=== PATIENT | male | born 1965 | race Hispanic/Latino ===

== ENCOUNTER 2018-10-04 06:01 | Emergency (ER) | payer SELFPAY ==
[2018-10-04 06:08] VITALS: BP 180/107
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
== END 2018-10-04 09:54 | disposition home or self-care (01) ==
LOC: ED 06:01
DX: S05.01XA Injury of conjunctiva and corneal abrasion without foreign body, right eye, initial encounter (principal); J45.909 Unspecified asthma, uncomplicated; F17.200 Nicotine dependence, unspecified, uncomplicated; Z88.0 Allergy status to penicillin; X58.XXXA Exposure to other specified factors, initial encounter; Y93.89 Activity, other specified; Y92.89 Other specified places as the place of occurrence of the external cause; Y99.8 Other external cause status
CPT/HCPCS: 99281

== ENCOUNTER 2019-11-25 09:08 | Emergency (ER) | payer SELFPAY ==
[2019-11-25 09:13] VITALS: BP 113/98
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
[2019-11-25] MEDS ORDERED: IBUPROFEN 600 MG TAB PO ONE (11:23)
[2019-11-25] MEDS ORDERED: traMADol 50 MG TAB PO ONE (11:23)
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
--- NOTE | 2019-11-25 12:03 | XRay Report ---
RIGHT FOOT RADIOGRAPH, 2 VIEWS INDICATION / CLINICAL INFORMATION: Right foot and ankle pain questionable fracture COMPARISON: Right ankle radiograph same day FINDINGS: BONES / JOINT(S): There is cortical irregularity of the bases of the second through fourth metatarsal s seen only on the frontal view, worrisome for fractures. Distal fibular fracture better seen on dedi cated ankle radiographs. SOFT TISSUES: Diffuse soft tissue swelling about the foot and ankle. ADDITIONAL FINDINGS: None. Signer Name: Sandrine Wood MD Signed: 11/25/2019 11:58 AM Workstation Name: [id number]
== END 2019-11-25 14:48 | disposition home or self-care (01) ==
LOC: ED 09:08
DX: S82.891A Other fracture of right lower leg, initial encounter for closed fracture (principal); J45.909 Unspecified asthma, uncomplicated; F17.200 Nicotine dependence, unspecified, uncomplicated; Z79.899 Other long term (current) drug therapy; Z88.0 Allergy status to penicillin; X58.XXXA Exposure to other specified factors, initial encounter; Y93.89 Activity, other specified; Y92.89 Other specified places as the place of occurrence of the external cause; Y99.8 Other external cause status

== ENCOUNTER 2020-02-28 13:30 | Inpatient (IN) | payer OTHER ==
--- NOTE | 2020-02-28 14:21 | Event Note ---
ED Screening Note Date of service: 02/28/20 Time: 14:20 ED Screening Note: 54-year-old male presents to the emergency room for shortness of breath and bilateral leg edema x4 weeks. Patient reports he is coughing up white phlegm. Denies any chest pain but does have chest pressure. Patient denies any past medical history currently takes no medications. Does admit to smoking cigarettes drinking alcohol on occasional basis. Denies any COVID positive contact. Has not recently traveled. This initial assessment/diagnostic orders/clinical plan/treatment(s) is/are subject to change based on patients health status, clinical progression and re- assessment by fellow clinical providers in the ED. Further treatment and workup at subsequent clinical providers discretion. Patient/guardian urged not to elope from the ED as their condition may be serious if not clinically assessed and managed. Initial orders include:
--- NOTE | 2020-02-28 14:52 | XRay Report ---
CHEST 2 VIEWS INDICATION: sob,cough and rales. COMPARISON: None FINDINGS: Support devices: None. Heart: Within normal limits. Lungs/pleura: Small to medium left pleural effusion obscures the left hemidiaphragm and left heart linda rder. There is compression of the left lung base although underlying infiltrate cannot be excluded. T he right lung is generally clear. No pneumothorax. Additional findings: None. IMPRESSION: Left pleural effusion. Compressive atelectasis or infiltrate at the left lung base. Correlate with th e patient's clinical presentation. Signer Name: Yoni Soler Jr, MD Signed: 02/28/2020 2:48 PM Workstation Name: [id number]
[2020-02-28 15:06] LABS: Basophils # (Auto) 0.1 K/mm3 (0.0-0.1); Basophils % (Auto) 0.9 % (0.0-1.8); Eosinophils # (Auto) 0.2 K/mm3 (0.0-0.4); Eosinophils % (Auto) 2.5 % (0.0-4.3); Hematocrit 42.7 % (35.5-45.6); Hemoglobin 14.3 gm/dl (11.8-15.2); Lymphocytes # (Auto) 1.5 K/mm3 (1.2-5.4); Lymphocytes % (Auto) 16.4 % (13.4-35.0); Mean Corpuscular HGB Conc 34 % (32-34); Mean Corpuscular Volume 102 fl (84-94); Monocytes # (Auto) 1.2 K/mm3 (0.0-0.8); Platelet Count 252 K/mm3 (140-440); Red Blood Count 4.17 M/mm3 (3.65-5.03); Red Cell Distribution Width 14.4 % (13.2-15.2)
[2020-02-28 15:22] LABS: Alanine Aminotransferase 69 units/L (7-56); BUN/Creatinine Ratio 18; Blood Urea Nitrogen 21 mg/dL (9-20); Calcium 9.1 mg/dL (8.4-10.2); Hemolysis Index 5
[2020-02-28] MEDS ORDERED: FUROSEMIDE 40 MG/4 ML INJ IV ONE (18:49)
[2020-02-28] MEDS ORDERED: ASPIRIN 325 MG TAB PO ONE (18:54)
--- NOTE | 2020-02-28 18:54 | Emergency Department Report ---
HPI - General Chief Complaint: Dyspnea/Respdistress Time Seen by Provider: 02/28/20 14:18 - HPI HPI: Room 23 The patient is a 54-year-old male present with a chief complaint of shortness of breath. The patient states for the past 1.5 weeks she has had shortness of breath and worsening dyspnea on exertion with 10-12 stairs. Patient states that shortness of breath is worse in the morning. The patient states he has noticed bilateral lower extremity edema over the past 2 to 3 days. Patient denies chest pain or fever. ED Past Medical Hx - Past Medical History Previous Medical History?: Yes Hx Asthma: Yes (as child) - Surgical History Past Surgical History?: No - Family History Family history: no significant - Social History Smoking Status: Current Every Day Smoker (1 pack/day) Substance Use Type: None (Denies illicit drug use), Alcohol (Daily) - Medications Home Medications: Home Medications Medication Instructions Recorded Confirmed Last Taken Type Gentamicin 0.3% Ophth Soln 2 drops OP Q4H #1 bottle 10/04/18 Unknown Rx Naphazoline HCl/Pheniramine 2 drops OP BID #1 bottle 10/04/18 Unknown Rx [Naphcon-A Eye Drops] HYDROcodone/APAP 7.5-325 [[place] 1 each PO Q8HR PRN #12 tablet 11/25/19 Unknown Rx 7.5/325] Ibuprofen [Motrin 600 MG tab] 600 mg PO Q8H PRN #30 tablet 11/25/19 Unknown Rx ED Review of Systems ROS: Stated complaint: SOB/SWOLLEN LEGS Other details as noted in HPI Constitutional: denies: fever Eyes: denies: eye pain ENT: denies: throat pain Respiratory: shortness of breath, SOB with exertion Cardiovascular: dyspnea on exertion. denies: chest pain Endocrine: no symptoms reported Genitourinary: denies: dysuria Musculoskeletal: denies: back pain Neurological: denies: headache Physical Exam - Physical Exam Vital Signs: Vital Signs 02/28/20 02/28/20 02/28/20 13:47 18:03 18:30 Temperature 98.3 F 98.4 F 98.6 F Pulse Rate 120 H 113 H 110 H Respiratory 18 16 24 Rate Blood Pressure 168/100 150/111 153/111 O2 Sat by Pulse 95 96 96 Oximetry 02/28/20 18:34 Temperature Pulse Rate Respiratory 22 Rate Blood Pressure O2 Sat by Pulse 96 Oximetry Physical Exam: GENERAL: The patient is well-developed well-nourished male lying on stretcher not appearing to be in acute distress. [] HEENT: Normocephalic. Atraumatic. Extraocular motions are intact. Patient has moist mucous membranes. NECK: Supple. Trachea midline CHEST/LUNGS: Crackles and diminished breath sounds at the bases bilaterally left greater than right. There is no respiratory distress noted. HEART/CARDIOVASCULAR: Regular. There is no tachycardia. There is no gallop rub or murmur. ABDOMEN: Abdomen is soft, nontender. Patient has normal bowel sounds. There is no abdominal distention. SKIN: There is no rash. There is 1+ right and 2+ left lower extremity pitting edema. There is no diaphoresis. NEURO: The patient is awake, alert, and oriented. The patient is cooperative. The patient has normal speech MUSCULOSKELETAL: There is no evidence of acute injury. ED Course Vital Signs 02/28/20 02/28/20 02/28/20 13:47 18:03 18:30 Temperature 98.3 F 98.4 F 98.6 F Pulse Rate 120 H 113 H 110 H Respiratory 18 16 24 Rate Blood Pressure 168/100 150/111 153/111 O2 Sat by Pulse 95 96 96 Oximetry 02/28/20 18:34 Temperature Pulse Rate Respiratory 22 Rate Blood Pressure O2 Sat by Pulse 96 Oximetry ED Medical Decision Making - Lab Data Result diagrams: 02/28/20 14:37 02/28/20 14:37 Laboratory Tests 02/28/20 02/28/20 14:37 14:37 WBC 9.1 RBC 4.17 Hgb 14.3 Hct 42.7 MCV 102 H MCH 34 H MCHC 34 RDW 14.4 Plt Count 252 Lymph % (Auto) 16.4 [place] % (Auto) 13.0 H Eos % (Auto) 2.5 Baso % (Auto) 0.9 Lymph # 1.5 [place] # 1.2 H Eos # 0.2 Baso # 0.1 Seg Neutrophils % 67.2 Seg Neutrophils # 6.1 Sodium 141 Potassium 3.8 Chloride 103.8 Carbon Dioxide 25 Anion Gap 16 BUN 21 H Creatinine 1.2 Estimated GFR > 60 BUN/Creatinine Ratio 18 Glucose 101 H Calcium 9.1 Total Bilirubin 0.70 AST 36 ALT 69 H Alkaline Phosphatase 117 NT-Pro-B Natriuret Pep 5070 H Total Protein 7.1 Albumin 4.0 Albumin/Globulin Ratio 1.3 - EKG Data -: EKG Interpreted by Me EKG shows normal: sinus rhythm Rate: tachycardia (116 bpm) - EKG Data When compared to previous EKG there are: previous EKG unavailable Interpretation: other (No ischemic changes seen) - Radiology Data Radiology results: report reviewed (Chest x-ray), image reviewed (Chest x-ray) interpreted by me: Chest x-ray-left pleural effusion. No pneumothorax [facility] [address] [place] [address] XRay Report Signed Patient: JEANNETTE SYED MR#: [id number] : 1965 Acct:[id number] Age/Sex: 54 / M ADM Date: 02/28/20 Loc: ED Attending Dr: Ordering Physician: SOFÍA SOLIZ Date of Service: 02/28/20 Procedure(s): XR chest routine 2V Accession Number(s): [id number] cc: SOFÍA SOLIZ Fluoro Time In Minutes: CHEST 2 VIEWS INDICATION: sob,cough and rales. COMPARISON: None FINDINGS: Support devices: None. Heart: Within normal limits. Lungs/pleura: Small to medium left pleural effusion obscures the left hemidiaphragm and left heart border. There is compression of the left lung base although underlying infiltrate cannot be excluded. The right lung is generally clear. No pneumothorax. Additional findings: None. IMPRESSION: Left pleural effusion. Compressive atelectasis or infiltrate at the left lung base. Correlate with the patient's clinical presentation. Signer Name: Yoni Soler Jr, MD Signed: 02/28/2020 2:48 PM Workstation Name: [id number] Transcribed By: TTR Dictated By: YONI SOLER JR, MD Electronically Authenticated By: YONI SOLER JR, MD Signed Date/Time: 02/28/201447 DD/ 45 TD/TT: - Differential Diagnosis CHF, pneumonia, pleural effusion Critical care attestation.: If time is entered above; I have spent that time in minutes in the direct care of this critically ill patient, excluding procedure time. ED Disposition Clinical Impression: New onset of congestive heart failure Disposition: DC-09 OP ADMIT IP TO THIS HOSP Is pt being admited?: Yes Does the pt Need Aspirin: Yes Condition: Fair Referrals: CALISTA ROSALES MD [Primary Care Provider] - 3-5 Days Time of Disposition: 18:53 (Hospitalist paged (Dr. Garvin))
[2020-02-28] MEDS ORDERED: ACETAMINOPHEN 325 MG TAB PO PRN (21:27)
[2020-02-28] MEDS ORDERED: ONDANSETRON 4 MG/2 ML INJ IV PRN (21:27)
[2020-02-28] MEDS ORDERED: HYDROmorphone 1 MG/1 ML INJ IV PRN (21:27)
--- NOTE | 2020-02-28 21:27 | History and Physical Report ---
History of Present Illness Date of examination: 02/28/20 Date of admission: February 28, 2020 Chief complaint: Shortness of breath on minimal exertion for 1 week History of present illness: 54-year-old male With no significant past medical history is a smoker comes in for shortness of breath for last 1 week to 10 days. Shortness of breath on minimal exertion and orthopnea present. Also swelling of both the legs present. And slight redness of both the legs present. Does not take any medications for any chronic problems. No chest pain or palpitations. Orthopnea is prominent. No PND attacks. No cough or fever or exposure to coronavirus. No recent travel. - Past Medical History Previous Medical History?: Yes Hx Asthma: Yes (as child) - Surgical History Past Surgical History?: No - Family History Family history: no significant - Social History Smoking Status: Current Every Day Smoker (1 pack/day) Substance Use Type: None (Denies illicit drug use), Alcohol (Daily) - Medications Home Medications: Home Medications Medication Instructions Recorded Confirmed Last Taken Type Gentamicin 0.3% Ophth Soln 2 drops OP Q4H #1 bottle 10/04/18 Unknown Rx Naphazoline HCl/Pheniramine 2 drops OP BID #1 bottle 10/04/18 Unknown Rx [Naphcon-A Eye Drops] HYDROcodone/APAP 7.5-325 [[place] 1 each PO Q8HR PRN #12 tablet 11/25/19 Unknown Rx 7.5/325] Ibuprofen [Motrin 600 MG tab] 600 mg PO Q8H PRN #30 tablet 11/25/19 Unknown Rx Review of Systems ROS: Stated complaint: SOB/SWOLLEN LEGS Other details as noted in HPI Constitutional: denies: fever Eyes: denies: eye pain ENT: denies: throat pain Respiratory: shortness of breath, SOB with exertion Cardiovascular: dyspnea on exertion. denies: chest pain Endocrine: no symptoms reported Genitourinary: denies: dysuria Musculoskeletal: denies: back pain Neurological: denies: headache Medications and Allergies Allergies Allergy/AdvReac Type Severity Reaction Status Date / Time Penicillins Allergy Unknown Verified 10/04/18 06:08 Home Medications Medication Instructions Recorded Confirmed Last Taken Type Naphazoline HCl/Pheniramine 2 drops OP BID #1 bottle 10/04/18 Unknown Rx [Naphcon-A Eye Drops] RX: Gentamicin 0.3% Ophth Soln 2 drops OP Q4H #1 bottle 10/04/18 Unknown Rx HYDROcodone/APAP 7.5-325 [[place] 1 each PO Q8HR PRN #12 tablet 11/25/19 Unknown Rx 7.5/325] RX: Ibuprofen [Motrin 600 MG tab] 600 mg PO Q8H PRN #30 tablet 11/25/19 Unknown Rx Exam - Constitutional Vitals: Temp Pulse Resp BP Pulse Ox 98.6 F 110 H 22 153/111 96 02/28/20 18:30 02/28/20 18:30 02/28/20 18:34 02/28/20 18:30 02/28/20 18:34 General appearance: Present: no acute distress, well-nourished - EENT Eyes: Present: PERRL ENT: hearing intact, clear oral mucosa - Neck Neck: Present: supple, normal ROM - Respiratory Respiratory effort: normal Respiratory: bilateral: CTA - Cardiovascular Heart rate: 116 Rhythm: regular (116) Heart Sounds: Present: S1 & S2. Absent: rub, click - Extremities Extremities: no ischemia, pulses symmetrical, No edema Extremity abnormal: edema (2+ pitting edema present on the both the lower legs with slight erythema), erythema Peripheral Pulses: within normal limits - Abdominal General gastrointestinal: Present: soft, non-tender, non-distended, normal bowel sounds Male genitourinary: Present: normal - Integumentary Integumentary: Present: clear, warm, dry - Musculoskeletal Musculoskeletal: gait normal, strength equal bilaterally - Psychiatric Psychiatric: appropriate mood/affect, intact judgment & insight - Neurologic Neurologic: CNII-XII intact, moves all extremities - Allied Health Allied health notes reviewed: nursing, case management HEART Score - HEART Score History: Moderately suspicious Age: 45-65 Risk factors: 1-2 risk factors (Smoking) Troponin: < normal limit Results - Labs CBC & Chem 7: 02/29/20 04:23 02/29/20 04:23 Labs: Laboratory Last Values WBC 9.1 K/mm3 (4.5-11.0) 02/28/20 14:37 RBC 4.17 M/mm3 (3.65-5.03) 02/28/20 14:37 Hgb 14.3 gm/dl (11.8-15.2) 02/28/20 14:37 Hct 42.7 % (35.5-45.6) 02/28/20 14:37 MCV 102 fl (84-94) H 02/28/20 14:37 MCH 34 pg (28-32) H 02/28/20 14:37 MCHC 34 % (32-34) 02/28/20 14:37 RDW 14.4 % (13.2-15.2) 02/28/20 14:37 Plt Count 252 K/mm3 (140-440) 02/28/20 14:37 Lymph % (Auto) 16.4 % (13.4-35.0) 02/28/20 14:37 [place] % (Auto) 13.0 % (0.0-7.3) H 02/28/20 14:37 Eos % (Auto) 2.5 % (0.0-4.3) 02/28/20 14:37 Baso % (Auto) 0.9 % (0.0-1.8) 02/28/20 14:37 Lymph # 1.5 K/mm3 (1.2-5.4) 02/28/20 14:37 [place] # 1.2 K/mm3 (0.0-0.8) H 02/28/20 14:37 Eos # 0.2 K/mm3 (0.0-0.4) 02/28/20 14:37 Baso # 0.1 K/mm3 (0.0-0.1) 02/28/20 14:37 Seg Neutrophils % 67.2 % (40.0-70.0) 02/28/20 14:37 Seg Neutrophils # 6.1 K/mm3 (1.8-7.7) 02/28/20 14:37 Sodium 141 mmol/L (137-145) 02/28/20 14:37 Potassium 3.8 mmol/L (3.6-5.0) 02/28/20 14:37 Chloride 103.8 mmol/L (98-107) 02/28/20 14:37 Carbon Dioxide 25 mmol/L (22-30) 02/28/20 14:37 Anion Gap 16 mmol/L 02/28/20 14:37 BUN 21 mg/dL (9-20) H 02/28/20 14:37 Creatinine 1.2 mg/dL (0.8-1.5) 02/28/20 14:37 Estimated GFR > 60 ml/min 02/28/20 14:37 BUN/Creatinine Ratio 18 % 02/28/20 14:37 Glucose 101 mg/dL (75-100) H 02/28/20 14:37 Calcium 9.1 mg/dL (8.4-10.2) 02/28/20 14:37 Total Bilirubin 0.70 mg/dL (0.1-1.2) 02/28/20 14:37 AST 36 units/L (5-40) 02/28/20 14:37 ALT 69 units/L (7-56) H 02/28/20 14:37 Alkaline Phosphatase 117 units/L (35-129) 02/28/20 14:37 NT-Pro-B Natriuret Pep 5070 pg/mL (0-900) H 02/28/20 14:37 Total Protein 7.1 g/dL (6.3-8.2) 02/28/20 14:37 Albumin 4.0 g/dL (3.9-5) 02/28/20 14:37 Albumin/Globulin Ratio 1.3 % 02/28/20 14:37 Short CBC 02/28/20 02/29/20 Range/Units 14:37 04:23 WBC 9.1 7.8 (4.5-11.0) K/mm3 Hgb 14.3 13.6 (11.8-15.2) gm/dl Hct 42.7 40.1 (35.5-45.6) % Plt Count 252 247 (140-440) K/mm3 BMP 02/28/20 02/29/20 14:37 04:23 Sodium 141 141 Potassium 3.8 3.4 L Chloride 103.8 100.6 Carbon Dioxide 25 26 BUN 21 H 20 Creatinine 1.2 1.0 Glucose 101 H 104 H Calcium 9.1 8.3 L Cardiac Enzymes 02/28/20 02/28/20 02/29/20 Range/Units 14:37 21:41 04:23 Troponin T 0.099 H 0.113 H* 0.100 H (0.00-0.029) ng/mL Liver Function 02/28/20 02/29/20 Range/Units 14:37 04:23 Total Bilirubin 0.70 0.90 (0.1-1.2) mg/dL AST 36 32 (5-40) units/L ALT 69 H 57 H (7-56) units/L Alkaline Phosphatase 117 99 (35-129) units/L Albumin 4.0 3.3 L (3.9-5) g/dL - Imaging and Cardiology EKG: report reviewed (Sinus tachycardia heart rate of 116/min) Chest x-ray: report reviewed Imaging and Cardiology: Chest x-ray Left pleural effusion Compressive atelectasis or infiltration at the left lung base. Correlate with the patient's presentation. Chest x-ray [place]/IV: IV Catheter Type [Left Forearm INT / Saline Lock ] Assessment and Plan Advance Directives: Yes (Full code) VTE prophylaxis?: Chemical Plan of care discussed with patient/family: Yes - Patient Problems (1) Acute exacerbation of CHF (congestive heart failure) Current Visit: Yes Status: Acute Plan to address problem: New onset CHF Patient is a smoker Echocardiogram for ejection fraction and valve function IV Lasix every 12 hours Daily weights Daily intake and output Cardiology consulted (2) New onset of congestive heart failure Current Visit: Yes Status: Acute Plan to address problem: Echocardiogram for ejection fraction (3) Hypertension Current Visit: Yes Status: Chronic Qualifiers: Hypertension type: essential hypertension Qualified Code(s): I10 - Essential (primary) hypertension Plan to address problem: Patient is noncompliant we will trend the blood pressure and start on antihypertensives (4) Pedal edema Current Visit: Yes Status: Acute Plan to address problem: Probably secondary to pulmonary hypertension (5) DVT prophylaxis Current Visit: Yes Status: Acute Plan to address problem: Heparin and GI prophylaxis
[2020-02-28] MEDS ORDERED: HYDROcodone/ACETAMINOPHEN 7.5-325MG TAB PO PRN (21:37)
[2020-02-28] MEDS ORDERED: POTASSIUM CHLORIDE ER 20 MEQ TAB PO SCH (22:00)
[2020-02-28] MEDS: LOSARTAN 50 MG TAB PO SCH (22:08)
[2020-02-28] MEDS: FAMOTIDINE 20 MG TAB PO SCH (22:08)
[2020-02-28] MEDS: HEPARIN 5,000 UNIT/1 ML VIAL SUB-Q SCH (22:09)
[2020-02-28] MEDS: NICOTINE 14 MG/24 HR PATCH TD SCH (22:29)
[2020-02-28 22:35] LABS: Chol/HDL Ratio 4.09 %
[2020-02-29 06:12] LABS: Basophils # (Auto) 0.1 K/mm3 (0.0-0.1); Basophils % (Auto) 1.9 % (0.0-1.8); Eosinophils # (Auto) 0.4 K/mm3 (0.0-0.4); Eosinophils % (Auto) 4.8 % (0.0-4.3); Hematocrit 40.1 % (35.5-45.6); Hemoglobin 13.6 gm/dl (11.8-15.2); Lymphocytes # (Auto) 1.7 K/mm3 (1.2-5.4); Lymphocytes % (Auto) 21.5 % (13.4-35.0); Mean Corpuscular HGB Conc 34 % (32-34); Mean Corpuscular Volume 103 fl (84-94); Monocytes % (Auto) 12.6 % (0.0-7.3); Platelet Count 247 K/mm3 (140-440); Red Blood Count 3.88 M/mm3 (3.65-5.03); Red Cell Distribution Width 14.7 % (13.2-15.2)
[2020-02-29 06:36] LABS: Alanine Aminotransferase 57 units/L (7-56); Albumin 3.3 g/dL (3.9-5); BUN/Creatinine Ratio 20; Blood Urea Nitrogen 20 mg/dL (9-20); Calcium 8.3 mg/dL (8.4-10.2); Hemolysis Index 6
[2020-02-29] MEDS: FUROSEMIDE 40 MG/4 ML INJ IV SCH ×2 (07:48→17:29)
[2020-02-29] MEDS ORDERED: REGADENOSON 0.4 MG/5 ML INJ IV ONE ×2 (08:22→09:00)
--- NOTE | 2020-02-29 10:38 | Consultation ---
History of Present Illness Consult date: 02/29/20 Consult reason: congestive heart failure History of present illness: The patient is a 54-year-old man who reports no prior medical history, and has not seen a doctor in many years. He presents to the hospital with a two-week history of progressive shortness of breath, fatigue and bilateral lower extremity edema. There was no chest pain. Blood pressure was 168 systolic. EKG on presentation was a sinus tachycardia at 116, left ventricular pressure [address] and T wave abnormalities. Chest x-ray demonstrated a m oderate to severe cardiomegaly and mild interstitial edema, consistent with congestive heart failure. This is a new diagnosis of heart failure, patient reports no previous history. Echocardiogram preliminary findings of a severe systolic left ventricular dysfunction. Full echocardiogram report is pending. Past History Past Medical History: No medical history Medications and Allergies Allergies Allergy/AdvReac Type Severity Reaction Status Date / Time Penicillins Allergy Unknown Verified 10/04/18 06:08 Home Medications Medication Instructions Recorded Confirmed Last Taken Type Gentamicin 0.3% Ophth Soln 2 drops OP Q4H #1 bottle 10/04/18 Unknown Rx Naphazoline HCl/Pheniramine 2 drops OP BID #1 bottle 10/04/18 Unknown Rx [Naphcon-A Eye Drops] HYDROcodone/APAP 7.5-325 [[place] 1 each PO Q8HR PRN #12 tablet 11/25/19 Unknown Rx 7.5/325] Ibuprofen [Motrin 600 MG tab] 600 mg PO Q8H PRN #30 tablet 11/25/19 Unknown Rx Active Meds: Active Medications Acetaminophen (Tylenol) 650 mg PO Q4H PRN PRN Reason: Pain MILD(1-3)/Fever >100.5/[place] Acetaminophen/Hydrocodone Bitart ([place] 7.5/325) 1 each PO Q8HR PRN PRN Reason: Pain, Moderate (4-6) Famotidine (Pepcid) 20 mg PO BID [facility] Last Admin: 02/28/20 22:08 Dose: 20 mg Documented by: Furosemide (Lasix) 40 mg IV 0600,1800 [facility] Last Admin: 02/29/20 07:48 Dose: 40 mg Documented by: Furosemide (Lasix) 40 mg IV ONCE ONE Stop: 02/29/20 21:34 Heparin Sodium (Porcine) (Heparin) 5,000 unit SUB-Q Q12HR [facility] Last Admin: 02/28/20 22:09 Dose: 5,000 unit Documented by: Hydromorphone HCl (Dilaudid) 0.5 mg IV Q3H PRN PRN Reason: Pain , Severe (7-10) Losartan Potassium (Cozaar) 100 mg PO QDAY [facility] Last Admin: 02/28/20 22:08 Dose: 100 mg Documented by: Nicotine (Habitrol) 14 mg TD QDAY@2200 [facility] Last Admin: 02/28/20 22:29 Dose: 14 mg Documented by: Ondansetron HCl (Zofran) 4 mg IV Q8H PRN PRN Reason: Nausea And Vomiting Oxycodone/Acetaminophen (Percocet 5/325) 1 tab PO Q6H PRN PRN Reason: Pain, Moderate (4-6) Potassium Chloride (K-Dur) 20 meq PO Q12H [facility] Last Admin: 02/28/20 22:09 Dose: 20 meq Documented by: Sodium Chloride (Sodium Chloride Flush Syringe 10 Ml) 10 ml IV BID [facility] Last Admin: 02/28/20 22:10 Dose: 10 ml Documented by: Sodium Chloride (Sodium Chloride Flush Syringe 10 Ml) 10 ml IV PRN PRN PRN Reason: LINE FLUSH Review of Systems Cardiovascular: orthopnea, edema, shortness of breath, no chest pain, no palpitations, no rapid/irregular heart beat, no syncope, no lightheadedness Physical Examination Vital Signs Temp Pulse Resp BP Pulse Ox 98.3 F 120 H 18 168/100 95 02/28/20 13:47 02/28/20 13:47 02/28/20 13:47 02/28/20 13:47 02/28/20 13:47 General appearance: no acute distress HEENT: Positive: PERRL Neck: Positive: neck supple Cardiac: Positive: Reg Rate and Rhythm Lungs: Positive: Decreased Breath Sounds Neuro: Positive: Grossly Intact Abdomen: Positive: Soft Male genitourinary: Positive: deferred Skin: Positive: Clear Extremities: Present: +1 Edema Results 02/29/20 04:23 02/29/20 04:23 Cardiac Enzymes 02/28/20 02/29/20 Range/Units 14:37 04:23 AST 36 32 (5-40) units/L Lipids 02/28/20 Range/Units 21:41 Triglycerides 91 (2-149) mg/dL Cholesterol 131 (50-199) mg/dL HDL Cholesterol 32 L (40-59) mg/dL Cholesterol/HDL Ratio 4.09 % CBC 02/28/20 02/29/20 Range/Units 14:37 04:23 WBC 9.1 7.8 (4.5-11.0) K/mm3 RBC 4.17 3.88 (3.65-5.03) M/mm3 Hgb 14.3 13.6 (11.8-15.2) gm/dl Hct 42.7 40.1 (35.5-45.6) % Plt Count 252 247 (140-440) K/mm3 Lymph # 1.5 1.7 (1.2-5.4) K/mm3 [place] # 1.2 H 1.0 H (0.0-0.8) K/mm3 Eos # 0.2 0.4 (0.0-0.4) K/mm3 Baso # 0.1 0.1 (0.0-0.1) K/mm3 Comprehensive Metabolic Panel 02/28/20 02/29/20 Range/Units 14:37 04:23 Sodium 141 141 (137-145) mmol/L Potassium 3.8 3.4 L (3.6-5.0) mmol/L Chloride 103.8 100.6 (98-107) mmol/L Carbon Dioxide 25 26 (22-30) mmol/L BUN 21 H 20 (9-20) mg/dL Creatinine 1.2 1.0 (0.8-1.5) mg/dL Glucose 101 H 104 H (75-100) mg/dL Calcium 9.1 8.3 L (8.4-10.2) mg/dL AST 36 32 (5-40) units/L ALT 69 H 57 H (7-56) units/L Alkaline Phosphatase 117 99 (35-129) units/L Total Protein 7.1 6.4 (6.3-8.2) g/dL Albumin 4.0 3.3 L (3.9-5) g/dL EKG interpretations - Telemetry EKG Rhythm: Sinus Tachycardia Assessment and Plan - Patient Problems (1) New onset of congestive heart failure Current Visit: Yes Status: Acute Plan to address problem: Patient presents with a new diagnosis of congestive heart failure manifested by shortness of breath, fatigue, interstitial edema on chest x-ray and bilateral lower extremity edema. There is marked cardiomegaly on chest x-ray and prelimin beba findings on echocardiogram report severe systolic left ventricular dysfunction. The patient will be managed with diuretics, afterload reduction, oral antiplatelet therapy, and beta-blockers will be introduced after resolution of fluid overload. Further cardiac evaluation will depend on clinical course.
[2020-02-29] MEDS ORDERED: POTASSIUM CHLORIDE ER 20 MEQ TAB PO SCH (11:00)
[2020-02-29] MEDS: FAMOTIDINE 20 MG TAB PO SCH ×2 (11:21→21:18)
[2020-02-29] MEDS: HEPARIN 5,000 UNIT/1 ML VIAL SUB-Q SCH ×2 (11:21→21:20)
[2020-02-29] MEDS: LOSARTAN 50 MG TAB PO SCH (11:21)
[2020-02-29] MEDS: ASPIRIN EC 81 MG TAB PO SCH (11:24)
[2020-02-29] MEDS: carvediloL 6.25 MG TAB PO SCH ×2 (11:24→21:19)
[2020-02-29] MEDS: SPIRONOLACTONE 25 MG TAB PO SCH (11:25)
[2020-02-29] MEDS: NITROGLYCERIN 2% OINT 1 GM TP SCH ×2 (14:00→17:30)
[2020-02-29] MEDS: NICOTINE 14 MG/24 HR PATCH TD SCH (21:19)
--- NOTE | 2020-02-29 21:20 | Progress Note ---
Assessment and Plan Day #2 Dyspnea better Ejection fraction is 15 to 20% - Patient Problems (1) Acute exacerbation of CHF (congestive heart failure) Current Visit: Yes Status: Acute Plan to address problem: New onset CHF Patient is a smoker Echocardiogram for ejection fraction and valve function IV Lasix every 12 hours Daily weights Daily intake and output Cardiology consult appreciated Ejection fraction is 15 to 20% Decreased left ventricular systolic function CHF is in more in favor of acute systolic heart failure (2) New onset of congestive heart failure Current Visit: Yes Status: Acute Plan to address problem: Echocardiogram for ejection fraction Ejection fraction 15 to 20% Severely decreased left ventricular systolic function (3) Hypertension Current Visit: Yes Status: Chronic Qualifiers: Hypertension type: essential hypertension Qualified Code(s): I10 - Essential (primary) hypertension Plan to address problem: Patient is noncompliant we will trend the blood pressure and start on antihypertensives (4) Pedal edema Current Visit: Yes Status: Acute Plan to address problem: Probably secondary to pulmonary hypertension Pedal edema has come down (5) DVT prophylaxis Current Visit: Yes Status: Acute Plan to address problem: Heparin and GI prophylaxis Subjective Date of service: 02/29/20 Objective - Constitutional Vitals: Vital Signs - 12hr 02/29/20 02/29/20 02/29/20 11:21 11:24 11:25 Temperature Pulse Rate 103 H 103 H 103 H Respiratory Rate Blood Pressure 154/101 154/101 154/101 O2 Sat by Pulse Oximetry 02/29/20 02/29/20 02/29/20 16:01 17:30 19:55 Temperature 97.7 F 98.3 F Pulse Rate 95 H 99 H 96 H Respiratory 18 20 Rate Blood Pressure 125/84 125/79 O2 Sat by Pulse 97 91 Oximetry General appearance: Present: no acute distress, well-nourished - EENT Eyes: PERRL, EOM intact ENT: hearing intact, clear oral mucosa Ears: bilateral: normal - Neck Neck: supple, normal ROM - Respiratory Respiratory effort: normal Respiratory: bilateral: CTA - Breasts Breasts: normal - Cardiovascular Rhythm: regular Heart Sounds: Present: S1 & S2. Absent: gallop, rub Extremities: pulses intact, No edema, normal color, Full ROM - Gastrointestinal General gastrointestinal: Present: soft, non-tender, non-distended, normal bowel sounds - Genitourinary Male genitourinary: normal - Integumentary Integumentary: clear, warm, dry - Musculoskeletal Musculoskeletal: 1, strength equal bilaterally - Neurologic Neurologic: moves all extremities - Psychiatric Psychiatric: memory intact, appropriate mood/affect, intact judgment & insight - Labs CBC & Chem 7: 02/29/20 04:23 02/29/20 04:23 Labs: Abnormal lab results 02/28/20 02/28/20 02/29/20 Range/Units 14:37 21:41 04:23 MCV 103 H (84-94) fl MCH 35 H (28-32) pg [place] % (Auto) 12.6 H (0.0-7.3) % Eos % (Auto) 4.8 H (0.0-4.3) % Baso % (Auto) 1.9 H (0.0-1.8) % [place] # 1.0 H (0.0-0.8) K/mm3 Potassium (3.6-5.0) mmol/L Glucose (75-100) mg/dL Calcium (8.4-10.2) mg/dL ALT (7-56) units/L Troponin T 0.099 H 0.113 H* (0.00-0.029) ng/mL Albumin (3.9-5) g/dL HDL Cholesterol 32 L (40-59) mg/dL 02/29/20 02/29/20 02/29/20 Range/Units 04:23 04:23 14:53 MCV (84-94) fl MCH (28-32) pg [place] % (Auto) (0.0-7.3) % Eos % (Auto) (0.0-4.3) % Baso % (Auto) (0.0-1.8) % [place] # (0.0-0.8) K/mm3 Potassium 3.4 L (3.6-5.0) mmol/L Glucose 104 H (75-100) mg/dL Calcium 8.3 L (8.4-10.2) mg/dL ALT 57 H (7-56) units/L Troponin T 0.100 H 0.072 H D (0.00-0.029) ng/mL Albumin 3.3 L (3.9-5) g/dL HDL Cholesterol (40-59) mg/dL Echocardiogram Estimated ejection fraction is less than 15 to 20% Left ventricular chamber is severely dilated Left ventricular systolic function is severely decreased There is moderate mitral regurgitation There is mild to moderate tricuspid regurgitation There is mild to moderate pulmonary hypertension The right ventricular systolic pressure is calculated at 41 mmHg A trivial pericardial effusion is visualized - Imaging and cardiology Other: report reviewed (Echocardiogram results mentioned in the lab section) HEART Score - HEART Score Age: 45-65 Risk factors: 1-2 risk factors (Smoking) Troponin: Troponin T 0.072 ng/mL (0.00-0.029) H D 02/29/20 14:53 Troponin: < normal limit
[2020-02-29] MEDS ORDERED: FUROSEMIDE 40 MG/4 ML INJ IV ONE (21:33)
[2020-02-29] MEDS: oxyCODONE /ACETAMINOPHEN 5-325MG TAB PO PRN (22:34)
[2020-03-01] MEDS: oxyCODONE /ACETAMINOPHEN 5-325MG TAB PO PRN (06:15)
[2020-03-01] MEDS: NITROGLYCERIN 2% OINT 1 GM TP SCH ×4 (06:16→17:07)
[2020-03-01] MEDS: FUROSEMIDE 40 MG/4 ML INJ IV SCH ×2 (06:16→17:27)
[2020-03-01] MEDS: ASPIRIN EC 81 MG TAB PO SCH (09:36)
[2020-03-01] MEDS: FAMOTIDINE 20 MG TAB PO SCH ×2 (09:36→20:59)
[2020-03-01] MEDS: SPIRONOLACTONE 25 MG TAB PO SCH (09:36)
[2020-03-01] MEDS: LOSARTAN 50 MG TAB PO SCH (09:36)
[2020-03-01] MEDS: carvediloL 6.25 MG TAB PO SCH ×2 (09:37→20:59)
[2020-03-01] MEDS: HEPARIN 5,000 UNIT/1 ML VIAL SUB-Q SCH ×2 (09:38→20:59)
--- NOTE | 2020-03-01 10:33 | Progress Note ---
Assessment and Plan - Patient Problems (1) New onset of congestive heart failure Current Visit: Yes Status: Acute Plan to address problem: Patient presents with a new diagnosis of congestive heart failure manifested by shortness of breath, fatigue, interstitial edema on chest x-ray and bilateral lower extremity edema. There is marked cardiomegaly on chest x-ray and preliminary findings on echocardiogram report severe systolic left ventricular dysfunction. The patient will be managed with diuretics, afterload reduction, oral antiplatelet therapy, and beta-blockers will be introduced after resolution of fluid overload. Further cardiac evaluation will depend on clinical course. Subjective Date of service: 03/01/20 Interval history: The patient is comfortable, ambulating in the room, no shortness of breath. Lower extremity edema is resolving. Objective Vital Signs Temp Pulse Resp BP Pulse Ox 03/01/20 09:37 94 H 138/104 03/01/20 09:36 94 H 138/104 03/01/20 07:56 98.5 F 18 139/104 03/01/20 05:40 98.5 F 95 H 18 141/105 95 03/01/20 02:40 91 H 02/29/20 23:44 98.6 F 92 H 20 113/74 95 02/29/20 21:19 102 H 125/79 02/29/20 20:05 95 H 02/29/20 19:55 98.3 F 96 H 20 125/79 91 02/29/20 17:30 99 H 02/29/20 16:01 97.7 F 95 H 18 125/84 97 02/29/20 11:25 103 H 154/101 02/29/20 11:24 103 H 154/101 02/29/20 11:21 103 H 154/101 - Physical Examination General: No Apparent Distress HEENT: Positive: PERRL Neck: Positive: neck supple Cardiac: Positive: Reg Rate and Rhythm Lungs: Positive: clear to auscultation Neuro: Positive: Grossly Intact Abdomen: Positive: Soft Skin: Positive: Clear Extremities: Present: edema (trace) - Imaging and Cardiology EKG: report reviewed (Sinus tachycardia heart rate of 116/min)
--- NOTE | 2020-03-01 16:32 | Progress Note ---
Assessment and Plan Day #2 Dyspnea better Ejection fraction is 15 to 20% Day #3 Symptomatically better Probable discharge tomorrow Pedal edema has come down - Patient Problems (1) Acute exacerbation of CHF (congestive heart failure) Current Visit: Yes Status: Acute Plan to address problem: New onset CHF Patient is a smoker Echocardiogram for ejection fraction and valve function IV Lasix every 12 hours Daily weights Daily intake and output Cardiology consulted (2) New onset of congestive heart failure Current Visit: Yes Status: Acute Plan to address problem: Echocardiogram for ejection fraction (3) Hypertension Current Visit: Yes Status: Chronic Qualifiers: Hypertension type: essential hypertension Qualified Code(s): I10 - Essential (primary) hypertension Plan to address problem: Patient is noncompliant we will trend the blood pressure and start on antihypertensives (4) Pedal edema Current Visit: Yes Status: Acute Plan to address problem: Probably secondary to pulmonary hypertension (5) DVT prophylaxis Current Visit: Yes Status: Acute Plan to address problem: Heparin and GI prophylaxis Subjective Date of service: 03/01/20 Principal diagnosis: New onset CHF exacerbation Interval history: Day #3 54-year-old male With no significant past medical history is a smoker comes in for shortness of breath for last 1 week to 10 days. Shortness of breath on minimal exertion and orthopnea present. Also swelling of both the legs present. And slight redness of both the legs present. Does not take any medications for any chronic problems. No chest pain or palpitations. Orthopnea is prominent. No PND attacks. No cough or fever or exposure to coronavirus. No recent travel. Symptomatically better Ejection fraction is 15 to 20% Objective - Constitutional Vitals: Vital Signs - 12hr 03/01/20 03/01/20 03/01/20 05:40 07:56 09:36 Temperature 98.5 F 98.5 F Pulse Rate 95 H 94 H Respiratory 18 18 Rate Blood Pressure 141/105 139/104 138/104 O2 Sat by Pulse 95 Oximetry 03/01/20 03/01/20 09:37 10:00 Temperature Pulse Rate 94 H 90 Respiratory 20 Rate Blood Pressure 138/104 O2 Sat by Pulse Oximetry General appearance: Present: no acute distress, well-nourished - EENT Eyes: PERRL, EOM intact ENT: hearing intact, clear oral mucosa Ears: bilateral: normal - Neck Neck: supple, normal ROM - Respiratory Respiratory effort: normal Respiratory: bilateral: CTA - Breasts Breasts: normal - Cardiovascular Rhythm: regular Heart Sounds: Present: S1 & S2. Absent: gallop, rub Extremities: pulses intact, No edema, normal color, Full ROM - Gastrointestinal General gastrointestinal: Present: soft, non-tender, non-distended, normal bowel sounds - Genitourinary Male genitourinary: normal - Integumentary Integumentary: clear, warm, dry - Musculoskeletal Musculoskeletal: 1, strength equal bilaterally - Neurologic Neurologic: moves all extremities - Psychiatric Psychiatric: memory intact, appropriate mood/affect, intact judgment & insight - Labs CBC & Chem 7: 02/29/20 04:23 02/29/20 04:23 HEART Score - HEART Score Age: 45-65 Risk factors: 1-2 risk factors (Smoking) Troponin: Troponin T 0.072 ng/mL (0.00-0.029) H D 02/29/20 14:53 Troponin: < normal limit
[2020-03-01] MEDS ORDERED: MAGNESIUM HYDROXIDE (MOM) ORAL LIQD UDC PO PRN (20:38)
[2020-03-01] MEDS: NICOTINE 14 MG/24 HR PATCH TD SCH (20:59)
[2020-03-02] MEDS: NITROGLYCERIN 2% OINT 1 GM TP SCH ×4 (06:05→17:33)
[2020-03-02] MEDS: FUROSEMIDE 40 MG/4 ML INJ IV SCH ×2 (06:08→17:31)
[2020-03-02] MEDS: ASPIRIN EC 81 MG TAB PO SCH (11:21)
[2020-03-02] MEDS: FAMOTIDINE 20 MG TAB PO SCH ×2 (11:22→22:33)
[2020-03-02] MEDS: SPIRONOLACTONE 25 MG TAB PO SCH (11:22)
[2020-03-02] MEDS: LOSARTAN 50 MG TAB PO SCH (11:22)
[2020-03-02] MEDS: carvediloL 6.25 MG TAB PO SCH ×2 (11:23→22:33)
[2020-03-02] MEDS: HEPARIN 5,000 UNIT/1 ML VIAL SUB-Q SCH ×2 (11:23→22:33)
--- NOTE | 2020-03-02 14:11 | Progress Note ---
Assessment and Plan - Patient Problems (1) New onset of congestive heart failure Current Visit: Yes Status: Acute Plan to address problem: Patient presented with a new diagnosis of congestive heart failure manifested by shortness of breath, fatigue, interstitial edema on chest x-ray and bilateral lower extremity edema. There is marked cardiomegaly on chest x-ray and echocardiogram reports severe systolic left ventricular dysfunction ejection fraction 20 to 25%. The patient has responded diuretics, afterload reduction, oral antiplatelet therapy, beta-blockers and other guideline directed medical therapy. In the setting of new onset heart failure and severe systolic left ventricular dysfunction, accompanied by elevation in troponin levels, we will proceed with a left heart catheterization for definitive rule out of coronary artery disease. Subjective Date of service: 03/02/20 Principal diagnosis: New onset CHF exacerbation Interval history: Patient is improved clinically, shortness of breath and edema have resolved. Objective Vital Signs Temp Pulse Resp BP Pulse Ox 03/02/20 12:00 88 03/02/20 11:23 88 110/72 03/02/20 11:22 88 110/72 03/02/20 10:00 18 03/02/20 08:51 98.4 F 18 110/73 03/02/20 05:02 97.8 F 92 H 20 125/94 97 03/02/20 04:11 91 H 03/01/20 23:51 98.3 F 94 H 20 111/80 94 03/01/20 20:59 94 H 126/87 03/01/20 19:27 96 H 03/01/20 19:13 98.5 F 95 H 20 126/87 93 03/01/20 18:00 94 H 03/01/20 17:17 98.0 F 18 123/92 - Physical Examination General: No Apparent Distress HEENT: Positive: PERRL Neck: Positive: neck supple Cardiac: Positive: Reg Rate and Rhythm Lungs: Positive: Decreased Breath Sounds Neuro: Positive: Grossly Intact Abdomen: Positive: Soft Skin: Positive: Clear Extremities: Present: edema (trace) - Imaging and Cardiology EKG: report reviewed (Sinus tachycardia heart rate of 116/min)
[2020-03-02] MEDS ORDERED: SODIUM CHLORIDE 0.9% 500 ML 500 ML IV SCH (15:00)
[2020-03-02] MEDS: NICOTINE 14 MG/24 HR PATCH TD SCH (22:32)
[2020-03-03 06:15] LABS: Basophils # (Auto) 0.1 K/mm3 (0.0-0.1); Basophils % (Auto) 1.3 % (0.0-1.8); Eosinophils # (Auto) 0.3 K/mm3 (0.0-0.4); Eosinophils % (Auto) 4.5 % (0.0-4.3); Hematocrit 46.6 % (35.5-45.6); Hemoglobin 15.6 gm/dl (11.8-15.2); Lymphocytes # (Auto) 1.8 K/mm3 (1.2-5.4); Lymphocytes % (Auto) 23.5 % (13.4-35.0); Mean Corpuscular HGB Conc 34 % (32-34); Mean Corpuscular Volume 103 fl (84-94); Monocytes # (Auto) 1.1 K/mm3 (0.0-0.8); Monocytes % (Auto) 13.9 % (0.0-7.3); Platelet Count 285 K/mm3 (140-440); Red Blood Count 4.52 M/mm3 (3.65-5.03); Red Cell Distribution Width 14.7 % (13.2-15.2)
[2020-03-03 06:25] LABS: INR 1.11 (0.87-1.13)
[2020-03-03 06:31] LABS: BUN/Creatinine Ratio 17; Blood Urea Nitrogen 19 mg/dL (9-20); Calcium 9.1 mg/dL (8.4-10.2); Hemolysis Index 6
[2020-03-03] MEDS ORDERED: ASPIRIN EC 81 MG TAB PO ONE (08:05)
[2020-03-03] MEDS: ASPIRIN EC 81 MG TAB PO SCH ×2 (08:10→11:14)
[2020-03-03] MEDS ORDERED: SODIUM CHLORIDE 0.9% 500 ML 500 ML ONE (08:42)
[2020-03-03] MEDS ORDERED: HEPARIN/NS 5000 UNIT/500ML 1,000 ML IR ONE (09:12)
[2020-03-03] MEDS: MIDAZOLAM 2 MG/2 ML INJ ONE ×2 (09:41→10:12)
[2020-03-03] MEDS: fentaNYL 100 MCG/2 ML INJ ONE ×3 (09:41→10:25)
[2020-03-03] MEDS: LIDOCAINE (2%) 20 MG/1 ML VIAL 20 ML MDV INFILTRATI ONE ×2 (09:42→10:15)
[2020-03-03] MEDS: NITROGLYCERIN SYRINGE 3 ML ONE ×2 (09:43→10:20)
[2020-03-03] MEDS: VERAPAMIL 5 MG/2 ML INJ ONE ×2 (09:44→10:20)
[2020-03-03] MEDS: HEPARIN 10,000 UNITS/10 ML VIAL ONE ×2 (09:44→10:20)
--- NOTE | 2020-03-03 10:54 | Cardiac Catherization Report ---
REASON FOR PROCEDURE: Congestive heart failure and dilated cardiomyopathy. PROCEDURES: 1. Left heart catheterization. 2. Selective left and right coronary angiography. 3. Left ventricular angiography. 4. Sedation time start 10:12, end 10:31. DESCRIPTION OF PROCEDURE: The patient was prepped and draped in a sterile fashion after informed consent. The right radial cath site was prepped and draped after a negative Joni's test. The right radial artery was entered using Seldinger technique followed by placement of a 6-Danish hydrophilic sheath. Routine radial cocktail was administered via the sheath. Selective left and right coronary angiography was performed using a #3.5 left Elizabeth and a #4 right Elizabeth. A pigtail catheter was used for left ventricular angiography. The catheters were removed, sheath removed, and hemostasis achieved using a TR band. The patient was returned to the postprocedure unit in stable condition. There were no complications. FINDINGS: HEMODYNAMICS: Left ventricular end-diastolic pressure was 28, following coronary angiography. Ascending aortic pressure was 111/86. There was no significant pressure gradient on pullback across the aortic valve. CORONARY ANGIOGRAPHY: Left main coronary artery was angiographically normal. The left anterior descending artery and its diagonal branches were free of significant disease. A small to medium sized ramus intermedius artery contained mild luminal irregularities. The circumflex artery and its obtuse marginal branches contained mild luminal irregularities. The right coronary artery was dominant and similarly contained mild luminal irregularities. Left ventricle was severely dilated. There was severe left ventricular systolic dysfunction, diffuse hypokinesis, left ventricular ejection fraction 5-10%. CONCLUSION: 1. No significant coronary artery disease, angiographically near normal coronary arteries. 2. Severe dilated nonischemic cardiomyopathy, left ventricular ejection fraction 5-10%. RECOMMENDATION: Medical therapy and associated device therapy is recommended for severe nonischemic cardiomyopathy. JOB# [id number] CA/NTS
[2020-03-03] MEDS: FUROSEMIDE 40 MG/4 ML INJ IV SCH (11:13)
[2020-03-03] MEDS: NITROGLYCERIN 2% OINT 1 GM TP SCH (11:13)
--- NOTE | 2020-03-03 11:35 | Event Note ---
Date: 03/03/20 Cardiac catheterization today revealed angiographically normal coronary arteries and end-stage dilated nonischemic cardiomyopathy, ejection fraction 5 to 10%. The patient will be placed on guideline directed medical therapy and aggressive salt restricted diet. Okay for cardiac discharge on medical therapy.
[2020-03-03] MEDS: carvediloL 6.25 MG TAB PO SCH (11:43)
[2020-03-03] MEDS: SPIRONOLACTONE 25 MG TAB PO SCH (11:43)
[2020-03-03] MEDS: LOSARTAN 50 MG TAB PO SCH (11:43)
[2020-03-03] MEDS: FAMOTIDINE 20 MG TAB PO SCH (11:43)
[2020-03-03] MEDS: HEPARIN 5,000 UNIT/1 ML VIAL SUB-Q SCH (11:44)
[2020-03-03] MEDS ORDERED: SODIUM CHLORIDE 0.9% 1000 ML 1,000 ML IV SCH (11:45)
--- NOTE | 2020-03-03 20:18 | Progress Note ---
Assessment and Plan Day #2 Dyspnea better Ejection fraction is 15 to 20% Day #3 Symptomatically better Probable discharge tomorrow Pedal edema has come down Day 4 Symptomatically better Patient for left heart catheterization tomorrow Possible discharge after the cath tomorrow if cath is normal - Patient Problems (1) Acute exacerbation of CHF (congestive heart failure) Current Visit: Yes Status: Acute Plan to address problem: New onset CHF Patient is a smoker Echocardiogram for ejection fraction and valve function IV Lasix every 12 hours Daily weights Daily intake and output Cardiology consulted EChOfindings: Echocardiogram Ejection fraction is less than 15 to 20% Left ventricle systolic function is severely decreased Left ankle chamber is severely dilated Left atrium is moderate to severely dilated Moderate mitral regurgitation Moderate tricuspid regurgitation Mild to moderate pulmonary pretension (2) New onset of congestive heart failure Current Visit: Yes Status: Acute Plan to address problem: Echocardiogram for ejection fraction Ejection fraction 15 to 20% (3) Hypertension Current Visit: Yes Status: Chronic Qualifiers: Hypertension type: essential hypertension Qualified Code(s): I10 - Essential (primary) hypertension Plan to address problem: Patient is noncompliant we will trend the blood pressure and start on antihypertensives (4) Pedal edema Current Visit: Yes Status: Acute Plan to address problem: Probably secondary to pulmonary hypertension (5) DVT prophylaxis Current Visit: Yes Status: Acute Plan to address problem: Heparin and GI prophylaxis Subjective Date of service: 03/02/20 Principal diagnosis: New onset CHF exacerbation Interval history: Day #4 54-year-old male With no significant past medical history is a smoker comes in for shortness of breath for last 1 week to 10 days. Shortness of breath on minimal exertion and orthopnea present. Also swelling of both the legs present. And slight redness of both the legs present. Does not take any medications for any chronic problems. No chest pain or palpitations. Orthopnea is prominent. No PND attacks. No cough or fever or exposure to coronavirus. No recent travel. Symptomatically better Ejection fraction is 15 to 20% Patient for left heart catheterization tomorrow Objective - Constitutional Vitals: Vital Signs - 12hr 03/03/20 03/03/20 03/03/20 10:00 11:45 16:05 Temperature 98.9 F Pulse Rate 97 H 90 95 H Respiratory 20 Rate Blood Pressure 116/87 114/77 O2 Sat by Pulse 99 92 Oximetry 03/03/20 03/03/2020 16:36 16:37 16:38 Temperature Pulse Rate Respiratory Rate Blood Pressure 107/80 117/78 117/79 O2 Sat by Pulse Oximetry General appearance: Present: no acute distress, well-nourished - EENT Eyes: PERRL, EOM intact ENT: hearing intact, clear oral mucosa Ears: bilateral: normal - Neck Neck: supple, normal ROM - Respiratory Respiratory effort: normal Respiratory: bilateral: CTA - Breasts Breasts: normal - Cardiovascular Heart rate: 78 Rhythm: regular Heart Sounds: Present: S1 & S2. Absent: gallop, rub Extremities: pulses intact, No edema, normal color, Full ROM - Gastrointestinal General gastrointestinal: Present: soft, non-tender, non-distended, normal bowel sounds - Genitourinary Male genitourinary: normal - Integumentary Integumentary: clear, warm, dry - Musculoskeletal Musculoskeletal: 1, strength equal bilaterally - Neurologic Neurologic: moves all extremities - Psychiatric Psychiatric: memory intact, appropriate mood/affect, intact judgment & insight - Labs CBC & Chem 7: 03/03/20 05:08 03/03/20 05:08 Labs: Abnormal lab results 03/03/20 03/03/20 Range/Units 05:08 05:08 Hgb 15.6 H (11.8-15.2) gm/dl Hct 46.6 H (35.5-45.6) % MCV 103 H (84-94) fl MCH 35 H (28-32) pg Marin % (Auto) 13.9 H (0.0-7.3) % Eos % (Auto) 4.5 H (0.0-4.3) % Marin # 1.1 H (0.0-0.8) K/mm3 Chloride 97.7 L (98-107) mmol/L Glucose 117 H (75-100) mg/dL HEART Score - HEART Score Age: 45-65 Risk factors: 1-2 risk factors (Smoking) Troponin: Troponin T 0.072 ng/mL (0.00-0.029) H D 02/29/20 14:53 Troponin: < normal limit
--- NOTE | 2020-03-03 20:29 | Discharge Summary ---
Providers - Providers Date of Admission: 02/28/20 21:27 Date of discharge: 03/03/20 Attending physician: JAIME HIGH 02/28/20 21:27 Consult to Physician [CONS] Routine Comment: Consulting Provider: HOLLIE DESOUZA Physician Instructions: Reason For Exam: chf exacerbation 03/03/20 11:35 Consult to Cardiac Rehabilitation [CONS] Routine Reason For Exam: Cardiac Rehab Evaluation [facility] Condition: Fair Pertinent studies: EChOfindings: Echocardiogram Ejection fraction is less than 15 to 20% Left ventricle systolic function is severely decreased Left ankle chamber is severely dilated Left atrium is moderate to severely dilated Moderate mitral regurgitation Moderate tricuspid regurgitation Mild to moderate pulmonary pretension Procedures: Left heart catheterization--normal coronaries Hospital course: 54-year-old male With no significant past medical history is a smoker comes in for shortness of breath for last 1 week to 10 days. Shortness of breath on minimal exertion and orthopnea present. Also swelling of both the legs present. And slight redness of both the legs present. Does not take any medications for any chronic problems. No chest pain or palpitations. Orthopnea is prominent. No PND attacks. No cough or fever or exposure to coronavirus. No recent travel. Day #2 Dyspnea better Ejection fraction is 15 to 20% Day #3 Symptomatically better Probable discharge tomorrow Pedal edema has come down Day 4 Symptomatically better Patient for left heart catheterization tomorrow Possible discharge after the cath tomorrow if cath is normal Day #5 Symptomatically better Ejection fraction is 15 to 20% Patient for left heart catheterization tomorrow Day #6 Heart cardiac cath Normal coronary arteries Patient counseled about the congestive heart failure and his ejection fraction of 15 to 20% - Patient Problems (1) Acute exacerbation of CHF (congestive heart failure) Current Visit: Yes Status: Acute Plan to address problem: New onset CHF Patient is a smoker Echocardiogram for ejection fraction and valve function IV Lasix every 12 hours Daily weights Daily intake and output Cardiology consulted EChOfindings: Echocardiogram Ejection fraction is less than 15 to 20% Left ventricle systolic function is severely decreased Left ankle chamber is severely dilated Left atrium is moderate to severely dilated Moderate mitral regurgitation Moderate tricuspid regurgitation Mild to moderate pulmonary pretension (2) New onset of congestive heart failure Current Visit: Yes Status: Acute Plan to address problem: Echocardiogram for ejection fraction Ejection fraction 15 to 20% (3) Hypertension Current Visit: Yes Status: Chronic Qualifiers: Hypertension type: essential hypertension Qualified Code(s): I10 - Essential (primary) hypertension Plan to address problem: Patient is noncompliant we will trend the blood pressure and start on antihypertensives (4) Pedal edema Current Visit: Yes Status: Acute Plan to address problem: Probably secondary to pulmonary hypertension (5) DVT prophylaxis Current Visit: Yes Status: Acute Plan to address problem: Heparin and GI prophylaxis Subjective Date of service: 03/02/20 Principal diagnosis: New onset CHF exacerbation Interval history: Disposition: IN- TO HOME OR SELFCARE - Discharge Diagnoses (1) Acute exacerbation of CHF (congestive heart failure) Status: Acute (2) New onset of congestive heart failure Status: Acute (3) Hypertension Status: Chronic Qualifiers: Hypertension type: essential hypertension Qualified Code(s): I10 - Essential (primary) hypertension (4) Pedal edema Status: Acute (5) DVT prophylaxis Status: Acute Core Measure Documentation - Palliative Care Palliative Care/ Comfort Measures: Not Applicable - Core Measures Any of the following diagnoses?: none - Heart Failure Discharge Requirements SHARLA/ARB for LVSD if EF <40%: Yes Beta jacqueline at discharge: Yes Exam - Constitutional Vitals: Temp Pulse Resp BP Pulse Ox 98.9 F 95 H 20 117/79 92 03/03/20 16:05 03/03/20 16:05 03/03/20 16:05 03/03/20 16:38 03/03/20 16:05 General appearance: Present: no acute distress, well-nourished - EENT Eyes: Present: PERRL ENT: hearing intact, clear oral mucosa - Neck Neck: Present: supple, normal ROM - Respiratory Respiratory effort: normal Respiratory: bilateral: CTA - Cardiovascular Heart rate: 78 Rhythm: regular Heart Sounds: Present: S1 & S2. Absent: rub, click - Extremities Extremities: no ischemia, pulses intact, pulses symmetrical, No edema Peripheral Pulses: within normal limits - Abdominal General gastrointestinal: Present: soft, non-tender, non-distended, normal bowel sounds Male genitourinary: Present: normal - Integumentary Integumentary: Present: clear, warm, dry - Musculoskeletal Musculoskeletal: gait normal, strength equal bilaterally - Psychiatric Psychiatric: appropriate mood/affect, intact judgment & insight - Neurologic Neurologic: CNII-XII intact, moves all extremities Plan Activity: no restrictions Diet: low fat, low salt Follow up with: CALISTA ROSALES MD [Primary Care Provider] - 3-5 Days HOLLIE DESOUZA MD [Staff Physician] - 7 Days
[2020-03-03 20:55] VITALS: BP 116/79
== END 2020-03-03 21:17 | disposition home or self-care (01) | DRG 286 ==
LOC: ED 13:30 → 4A 21:27 → OBSVTOIN 21:27
PROVIDERS: ADMIT Internal Medicine; ATTEND Internal Medicine
PROC: 4A023N7 Measurement of Cardiac Sampling and Pressure, Left Heart, Percutaneous Approach (ICD-10-PCS; principal; 2020-03-03)
PROC: B2111ZZ Fluoroscopy of Multiple Coronary Arteries using Low Osmolar Contrast (ICD-10-PCS; 2020-03-03)
PROC: B2151ZZ Fluoroscopy of Left Heart using Low Osmolar Contrast (ICD-10-PCS; 2020-03-03)
DX: I11.0 Hypertensive heart disease with heart failure (principal); I50.21 Acute systolic (congestive) heart failure; F17.200 Nicotine dependence, unspecified, uncomplicated; I27.20 Pulmonary hypertension, unspecified; I42.8 Other cardiomyopathies
CPT/HCPCS: 36415; 71046; 80048; 80053; 80061; 83036; 83880; 84484; 85025; 85610; 93005; 93306; 93458; 99406; G0378; C1894; J1644; J1940; J2250; J2785; J3010; J7040; Q9967

== ENCOUNTER 2020-07-27 17:32 | Inpatient (IN) | payer OTHER ==
[2020-07-27] MEDS ORDERED: ASPIRIN 325 MG TAB PO ONE (17:37)
--- NOTE | 2020-07-27 17:45 | Event Note ---
ED Screening Note ED Screening Note: states he has had HTN for 3-4 days +CP substernal feels like pressure states he also has pain in the back no fever +nausea no vomiting diarrhea +SOB + leg swelling (left greater than right) PMHx HTN allergy: penicillin +smoker, 1 PPD no sick contacts no recent travel no recent surgery This initial assessment/diagnostic orders/clinical plan/treatment(s) is/are subject to change based on patients health status, clinical progression and re- assessment by fellow clinical providers in the ED. Further treatment and workup at subsequent clinical providers discretion. Patient/guardian urged not to elope from the ED as their condition may be serious if not clinically assessed and managed. Initial orders include: CP protocol, doppler BLE
[2020-07-27 18:05] LABS: Basophils % (Auto) 0.4 % (0.0-1.8); Eosinophils # (Auto) 0.4 K/mm3 (0.0-0.4); Eosinophils % (Auto) 3.7 % (0.0-4.3); Hematocrit 41.5 % (35.5-45.6); Hemoglobin 14.3 gm/dl (11.8-15.2); Lymphocytes # (Auto) 1.6 K/mm3 (1.2-5.4); Lymphocytes % (Auto) 16.6 % (13.4-35.0); Mean Corpuscular HGB Conc 34 % (32-34); Mean Corpuscular Volume 101 fl (84-94); Monocytes # (Auto) 1.4 K/mm3 (0.0-0.8); Monocytes % (Auto) 14.9 % (0.0-7.3); Platelet Count 292 K/mm3 (140-440); Red Blood Count 4.11 M/mm3 (3.65-5.03); Red Cell Distribution Width 14.7 % (13.2-15.2)
[2020-07-27 18:26] LABS: BUN/Creatinine Ratio 24; Blood Urea Nitrogen 22 mg/dL (9-20); Calcium 8.9 mg/dL (8.4-10.2); Hemolysis Index 9
[2020-07-27 18:30] LABS: Alanine Aminotransferase 66 units/L (7-56); Albumin 3.6 g/dL (3.9-5); Bilirubin,Direct < 0.2 mg/dL (0-0.2)
--- NOTE | 2020-07-27 18:37 | XRay Report ---
XR chest routine 2V INDICATION / CLINICAL INFORMATION: CP, SOB, BLE swelling. COMPARISON: 04/13/2020. FINDINGS: SUPPORT DEVICES: None. HEART /PULMONARY VASCULATURE: Cardiac silhouette is enlarged with mild pulmonary vasculature congesti on. LUNGS / PLEURA: Trace left pleural effusion. No interstitial airspace opacity. No pneumothorax. ADDITIONAL FINDINGS: No significant additional findings. IMPRESSION: Findings suggestive of mild CHF/volume overload with trace left pleural effusion. Signer Name: Leighton Peterson MD Signed: 07/27/2020 6:32 PM Workstation Name: [id number]
--- NOTE | 2020-07-27 19:39 | Vascular Lab Report ---
DUPLEX DOPPLER LOWER EXTREMITY VEINS, BILATERAL INDICATION / CLINICAL INFORMATION: BLE, left greater than right. TECHNIQUE: Duplex doppler imaging was performed through the veins of both lower extremities using venous gayle mulugeta and other maneuvers. COMPARISON: None available. FINDINGS: RIGHT COMMON FEMORAL VEIN: Negative. RIGHT FEMORAL VEIN: Negative. RIGHT POPLITEAL VEIN: Negative. RIGHT CALF VEINS: Negative. LEFT COMMON FEMORAL VEIN: Negative. LEFT FEMORAL VEIN: Negative. LEFT POPLITEAL VEIN: Negative. LEFT CALF VEINS: Negative. ADDITIONAL FINDINGS: None. IMPRESSION: 1. No sonographic evidence for DVT in either lower extremity. Signer Name: Isaac Beck MD Signed: 07/27/2020 7:35 PM Workstation Name: [id number]
--- NOTE | 2020-07-27 22:20 | Cat Scan Report ---
CTA CHEST WITH CONTRAST INDICATION / CLINICAL INFORMATION: CP, SOB, elevated d-dimer. TECHNIQUE: Axial CT images were obtained through the chest after injection of IV contrast. 3 plane MIP and/or 3D reconstructions were produced. All CT scans at this location are performed using CT dose reduction f or ALARA by means of automated exposure control. COMPARISON: 04/13/2020. Recent chest radiograph dated June 2019). FINDINGS: PULMONARY ARTERIES: No pulmonary emboli. THORACIC AORTA: No significant abnormality. HEART: No straightening of interventricular septum. CORONARY ARTERIES: Mild coronary artery calcifications. MEDIASTINUM / MALORIE: Scattered lymph nodes are not enlarged according to CT size criteria. PLEURA: Minimally worsened left pleural effusion. No pneumothorax. LUNGS: Persistent left lung base atelectasis. Interval improvement of previous noted right middle lob e atelectasis. Central lobar and paraseptal emphysematous changes are similar. ADDITIONAL FINDINGS: Reflux of contrast material is noted into the IVC. Bilateral gynecomastia noted. UPPER ABDOMEN: No acute findings. SKELETAL STRUCTURES: Multilevel degenerative changes are noted of the spine. No aggressive osseous le sions. IMPRESSION: 1. No CT evidence for pulmonary embolism or right heart strain. 2. Minimally worsened left sided pleural effusion with associated left lung base compressive atelecta sis. 3. Interval improvement of previously noted right middle lobe atelectasis. Signer Name: Isaac Beck MD Signed: 07/27/2020 10:16 PM Workstation Name: [id number]
[2020-07-28] MEDS ORDERED: FUROSEMIDE 40 MG/4 ML INJ IV ONE (06:18)
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
[2020-07-28] MEDS ORDERED: ASPIRIN 81 MG TAB CHEW PO ONE (07:51)
--- NOTE | 2020-07-28 08:53 | History and Physical Report ---
History of Present Illness Date of examination: 07/28/20 Date of admission: 07/28/20 08:09 Chief complaint: cp History of present illness: 54-year-old male with past medical history of dilated nonischemic cardiomyopathy, systolic heart failure (EF 5 to 10% )medical noncompliance presents to the emergency department with chief complaint of elevated blood pressure and chest pain. Patient states his blood pressure has been elevated for the last 4 days and has had chest tightness/discomfort for the past 2 days. Patient also reports dyspnea on exertion but denies nausea/vomiting or diaphoresis. No cough or cold-like symptoms. Patient does not have any allevia ting or aggravating factors. Patient states he has a history of hypertension but has been off his medications due to the lack of insurance. Patient also states he has a history congestive heart failure and is not on his Lasix due to lack of having a primary care physician or insurance. The patient had a recent admission for acute systolic heart failure March 2020. Past History Past Medical History: heart failure, hypertension, other (Nonischemic dilated cardiomyopathy,) Past Surgical History: No surgical history Social history: no significant social history Family history: no significant family history Medications and Allergies Allergies Allergy/AdvReac Type Severity Reaction Status Date / Time Penicillins Allergy Unknown Verified 10/04/18 06:08 Home Medications Medication Instructions Recorded Confirmed Last Taken Type Nicotine [Habitrol] 14 mg TD QDAY@2200 #21 patch 03/03/20 04/14/20 Unknown Rx oxyCODONE /ACETAMINOPHEN [Percocet 1 tab PO Q6H PRN #14 tablet 03/03/20 04/14/20 Unknown Rx 5/325 mg] Acetaminophen [Acetaminophen TAB] 650 mg PO Q4H PRN tablet 04/15/20 Unknown Rx Aspirin EC [Halfprin EC] 81 mg PO QDAY #100 tablet 04/15/20 Unknown Rx Famotidine [Pepcid] 40 mg PO QDAY #30 tablet 04/15/20 Unknown Rx Losartan [Cozaar] 50 mg PO QDAY #30 tablet 04/15/20 Unknown Rx Spironolactone [Aldactone] 25 mg PO QDAY #30 tablet 04/15/20 Unknown Rx carvediloL [Coreg] 6.25 mg PO BID #60 tablet 04/15/20 Unknown Rx Review of Systems All systems: negative Exam - Constitutional Vitals: Temp Pulse Resp BP Pulse Ox 98.1 F 104 H 17 143/102 99 07/27/20 17:53 07/28/20 05:30 07/28/20 05:30 07/28/20 05:30 07/28/20 05:30 General appearance: Present: no acute distress, well-nourished - EENT Eyes: Present: PERRL ENT: hearing intact, clear oral mucosa - Neck Neck: Present: supple, normal ROM - Respiratory Respiratory effort: normal Respiratory: bilateral: CTA - Cardiovascular Heart Sounds: Present: S1 & S2. Absent: rub, click - Extremities Extremities: pulses symmetrical, No edema Peripheral Pulses: within normal limits - Abdominal General gastrointestinal: Present: soft, non-tender, non-distended, normal bowel sounds Male genitourinary: Present: normal - Integumentary Integumentary: Present: clear, warm, dry - Musculoskeletal Musculoskeletal: gait normal, strength equal bilaterally - Psychiatric Psychiatric: appropriate mood/affect, intact judgment & insight - Neurologic Neurologic: CNII-XII intact, moves all extremities HEART Score - HEART Score Troponin: Troponin T < 0.010 ng/mL (0.00-0.029) 07/27/20 23:47 Results - Labs CBC & Chem 7: 07/27/20 17:54 07/27/20 17:54 Labs: Laboratory Last Values WBC 9.6 K/mm3 (4.5-11.0) 07/27/20 17:54 RBC 4.11 M/mm3 (3.65-5.03) 07/27/20 17:54 Hgb 14.3 gm/dl (11.8-15.2) 07/27/20 17:54 Hct 41.5 % (35.5-45.6) 07/27/20 17:54 MCV 101 fl (84-94) H 07/27/20 17:54 MCH 35 pg (28-32) H 07/27/20 17:54 MCHC 34 % (32-34) 07/27/20 17:54 RDW 14.7 % (13.2-15.2) 07/27/20 17:54 Plt Count 292 K/mm3 (140-440) 07/27/20 17:54 Lymph % (Auto) 16.6 % (13.4-35.0) 07/27/20 17:54 [place] % (Auto) 14.9 % (0.0-7.3) H 07/27/20 17:54 Eos % (Auto) 3.7 % (0.0-4.3) 07/27/20 17:54 Baso % (Auto) 0.4 % (0.0-1.8) 07/27/20 17:54 Lymph # (Auto) 1.6 K/mm3 (1.2-5.4) 07/27/20 17:54 [place] # (Auto) 1.4 K/mm3 (0.0-0.8) H 07/27/20 17:54 Eos # (Auto) 0.4 K/mm3 (0.0-0.4) 07/27/20 17:54 Baso # (Auto) 0.0 K/mm3 (0.0-0.1) 07/27/20 17:54 Seg Neutrophils % 64.4 % (40.0-70.0) 07/27/20 17:54 Seg Neutrophils # 6.2 K/mm3 (1.8-7.7) 07/27/20 17:54 D-Dimer 991.44 ng/mlDDU (0-234) H 07/27/20 17:58 Sodium 141 mmol/L (137-145) 07/27/20 17:54 Potassium 4.1 mmol/L (3.6-5.0) 07/27/20 17:54 Chloride 105.0 mmol/L (98-107) 07/27/20 17:54 Carbon Dioxide 24 mmol/L (22-30) 07/27/20 17:54 Anion Gap 16 mmol/L 07/27/20 17:54 BUN 22 mg/dL (9-20) H 07/27/20 17:54 Creatinine 0.9 mg/dL (0.8-1.3) 07/27/20 17:54 Estimated GFR > 60 ml/min 07/27/20 17:54 BUN/Creatinine Ratio 24 % 07/27/20 17:54 Glucose 106 mg/dL (75-100) H 07/27/20 17:54 Calcium 8.9 mg/dL (8.4-10.2) 07/27/20 17:54 Total Bilirubin 0.50 mg/dL (0.1-1.2) 07/27/20 17:58 Direct Bilirubin < 0.2 mg/dL (0-0.2) 07/27/20 17:58 Indirect Bilirubin 0.3 mg/dL 07/27/20 17:58 AST 27 units/L (5-40) 07/27/20 17:58 ALT 66 units/L (7-56) H 07/27/20 17:58 Alkaline Phosphatase 114 units/L (35-129) 07/27/20 17:58 Troponin T < 0.010 ng/mL (0.00-0.029) 07/27/20 23:47 NT-Pro-B Natriuret Pep 5869 pg/mL (0-900) H 07/27/20 17:58 Total Protein 6.4 g/dL (6.3-8.2) 07/27/20 17:58 Albumin 3.6 g/dL (3.9-5) L 07/27/20 17:58 Albumin/Globulin Ratio 1.3 % 07/27/20 17:58 Hewitt/IV: IV Catheter Type [Right INT / Saline Lock Antecubital] Assessment and Plan Assessment and plan: Acute systolic heart failure. 02/2020: Cardiac cath showed dilated cardiomyopathy and near normal coronary arteries, EF 5-10% - 02/2020 Echo showed a severely dilated LV, EF < 15-20%, mild-mod TR, moderate MR and mild-mod pulmonary HTN - Cardiology consulted - Lasix IV for now - Morphine for severe pain - HF education - Daily weights - Strict I and Os Elevated D-dimer -CTA of chest was negative for PE. Hypertension. -Resume home antihypertensive medication EtOH abuse. -Initiate CIWA protocol if needed. Tobacco abuse. -Patient will be counseled on smoking cessation.
[2020-07-28] MEDS ORDERED: ONDANSETRON 4 MG/2 ML INJ IV PRN (08:57)
[2020-07-28] MEDS ORDERED: ACETAMINOPHEN 325 MG TAB PO PRN (08:57)
[2020-07-28] MEDS ORDERED: FUROSEMIDE 40 MG/4 ML INJ ONE ×2 (10:19→21:01)
[2020-07-28] MEDS ORDERED: ASPIRIN 81 MG TAB CHEW ONE (10:19)
--- NOTE | 2020-07-28 11:13 | Consultation ---
History of Present Illness Consult date: 07/28/20 Consult reason: congestive heart failure History of present illness: This is a 54-year old male with hypertension, severe dilated cardiomyopathy and chronic systolic heart failure. In February, a cardiac catheterization showed angiographically normal coronary arteries, but a severely decrease left ventricular ejection fraction 5-10%. Patient is noncompliant with medications, dietary restrictions and outpatient cardiac follow up. Patient presents to the hospital at this time with shortness of breath and bilateral lower extremity edema, admitted with systolic heart failure. Chest x- ray showed cardiomegaly with mild interstitial edema. No evidence of PE by chest CTA. ECG is normal sinus rhythm with left ventricular hypertrophy. Cardiology co nsultation has been requested. Past History Past Medical History: heart failure, hypertension, other (Nonischemic dilated cardiomyopathy,) Past Surgical History: No surgical history Social history: no significant social history Family history: no significant family history Medications and Allergies Allergies Allergy/AdvReac Type Severity Reaction Status Date / Time Penicillins Allergy Unknown Verified 10/04/18 06:08 Home Medications Medication Instructions Recorded Confirmed Last Taken Type Nicotine [Habitrol] 14 mg TD QDAY@2200 #21 patch 03/03/20 04/14/20 Unknown Rx oxyCODONE /ACETAMINOPHEN [Percocet 1 tab PO Q6H PRN #14 tablet 03/03/20 04/14/20 Unknown Rx 5/325 mg] Acetaminophen [Acetaminophen TAB] 650 mg PO Q4H PRN tablet 04/15/20 Unknown Rx Aspirin EC [Halfprin EC] 81 mg PO QDAY #100 tablet 04/15/20 Unknown Rx Famotidine [Pepcid] 40 mg PO QDAY #30 tablet 04/15/20 Unknown Rx Losartan [Cozaar] 50 mg PO QDAY #30 tablet 04/15/20 Unknown Rx Spironolactone [Aldactone] 25 mg PO QDAY #30 tablet 04/15/20 Unknown Rx carvediloL [Coreg] 6.25 mg PO BID #60 tablet 04/15/20 Unknown Rx Active Meds: Active Medications Acetaminophen (Tylenol) 650 mg PO Q4H PRN PRN Reason: Fever >100.5/THOMPSON Acetaminophen (Tylenol) 650 mg PO Q6H PRN PRN Reason: Pain, Mild (1-3) Ondansetron HCl (Zofran) 4 mg IV Q8H PRN PRN Reason: Nausea And Vomiting Sodium Chloride (Sodium Chloride Flush Syringe 10 Ml) 10 ml IV BID [facility] Last Admin: 07/28/20 10:27 Dose: 10 ml Documented by: Sodium Chloride (Sodium Chloride Flush Syringe 10 Ml) 10 ml IV PRN PRN PRN Reason: LINE FLUSH Review of Systems Cardiovascular: edema, shortness of breath, dyspnea on exertion Physical Examination Vital Signs Temp Pulse Resp BP Pulse Ox 98.1 F 113 H 20 155/110 98 07/27/20 17:53 07/27/20 17:53 07/27/20 17:53 07/27/20 17:53 07/27/20 17:53 General appearance: no acute distress HEENT: Positive: PERRL Neck: Positive: trachea midline Cardiac: Positive: Reg Rate and Rhythm Lungs: Positive: Decreased Breath Sounds Neuro: Positive: Grossly Intact Extremities: Present: +2 Edema Results 07/27/20 17:54 07/27/20 17:54 Cardiac Enzymes 07/27/20 Range/Units 17:58 AST 27 (5-40) units/L CBC 07/27/20 Range/Units 17:54 WBC 9.6 (4.5-11.0) K/mm3 RBC 4.11 (3.65-5.03) M/mm3 Hgb 14.3 (11.8-15.2) gm/dl Hct 41.5 (35.5-45.6) % Plt Count 292 (140-440) K/mm3 Lymph # (Auto) 1.6 (1.2-5.4) K/mm3 [place] # (Auto) 1.4 H (0.0-0.8) K/mm3 Eos # (Auto) 0.4 (0.0-0.4) K/mm3 Baso # (Auto) 0.0 (0.0-0.1) K/mm3 Comprehensive Metabolic Panel 07/27/20 07/27/20 Range/Units 17:54 17:58 Sodium 141 (137-145) mmol/L Potassium 4.1 (3.6-5.0) mmol/L Chloride 105.0 (98-107) mmol/L Carbon Dioxide 24 (22-30) mmol/L BUN 22 H (9-20) mg/dL Creatinine 0.9 (0.8-1.3) mg/dL Glucose 106 H (75-100) mg/dL Calcium 8.9 (8.4-10.2) mg/dL Direct Bilirubin < 0.2 (0-0.2) mg/dL Indirect Bilirubin 0.3 mg/dL AST 27 (5-40) units/L ALT 66 H (7-56) units/L Alkaline Phosphatase 114 (35-129) units/L Total Protein 6.4 (6.3-8.2) g/dL Albumin 3.6 L (3.9-5) g/dL Assessment and Plan Chronic systolic heart failure Nonischemic CMP [facility] 02/2020: angiographically normal coronary arteries, with ejection fraction 5 to 10%. Noncompliant with the medications and dietary restriction Hypertension Recommendations: Advised compliance with medications and restriction of sodium and fluids. Resume on optimal medical therapy including diuretics. 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
[2020-07-28 16:28] LABS: Hematocrit 43.5 % (35.5-45.6); Hemoglobin 14.6 gm/dl (11.8-15.2); Mean Corpuscular HGB Conc 33 % (32-34); Mean Corpuscular Volume 101 fl (84-94); Platelet Count 278 K/mm3 (140-440); Red Blood Count 4.33 M/mm3 (3.65-5.03); Red Cell Distribution Width 14.7 % (13.2-15.2)
[2020-07-28 16:44] LABS: BUN/Creatinine Ratio 21; Blood Urea Nitrogen 19 mg/dL (9-20); Calcium 8.9 mg/dL (8.4-10.2); Hemolysis Index 22
[2020-07-28 17:13] LABS: Basophils % (Manual) 0 % (0.0-1.8); Total Cells Counted 100
[2020-07-28 17:14] LABS: Anisocytosis Few
[2020-07-28] MEDS: MILRINONE-D5W 20 MG/100 ML 20 MG/100 ML BAG IV SCH (19:39)
[2020-07-28] MEDS: FUROSEMIDE 40 MG/4 ML INJ IV SCH (21:04)
[2020-07-28] MEDS: carvediloL 6.25 MG TAB PO SCH (22:56)
[2020-07-28] MEDS: ACETAMINOPHEN 325 MG TAB PO PRN (22:56)
[2020-07-29] MEDS: FUROSEMIDE 40 MG/4 ML INJ IV SCH ×2 (06:35→17:42)
[2020-07-29] MEDS: MILRINONE-D5W 20 MG/100 ML 20 MG/100 ML BAG IV SCH ×3 (06:38→17:38)
[2020-07-29 08:07] LABS: Basophils # (Auto) 0.1 K/mm3 (0.0-0.1); Basophils % (Auto) 1.4 % (0.0-1.8); Eosinophils # (Auto) 0.4 K/mm3 (0.0-0.4); Hematocrit 42.7 % (35.5-45.6); Hemoglobin 14.4 gm/dl (11.8-15.2); Lymphocytes # (Auto) 1.2 K/mm3 (1.2-5.4); Lymphocytes % (Auto) 15.2 % (13.4-35.0); Mean Corpuscular HGB Conc 34 % (32-34); Mean Corpuscular Volume 99 fl (84-94); Monocytes % (Auto) 13.3 % (0.0-7.3); Platelet Count 316 K/mm3 (140-440); Red Blood Count 4.31 M/mm3 (3.65-5.03); Red Cell Distribution Width 14.9 % (13.2-15.2)
[2020-07-29] MEDS: ACETAMINOPHEN 325 MG TAB PO PRN ×2 (08:33→21:45)
[2020-07-29 10:40] LABS: BUN/Creatinine Ratio 17; Blood Urea Nitrogen 17 mg/dL (9-20); Calcium 9.1 mg/dL (8.4-10.2); Hemolysis Index 6
[2020-07-29] MEDS: LOSARTAN 50 MG TAB PO SCH (11:09)
[2020-07-29] MEDS: carvediloL 6.25 MG TAB PO SCH ×2 (11:09→21:46)
[2020-07-29] MEDS: SPIRONOLACTONE 25 MG TAB PO SCH (11:09)
[2020-07-29] MEDS: ASPIRIN 81 MG TAB CHEW PO SCH (11:10)
--- NOTE | 2020-07-29 11:33 | Progress Note ---
Assessment and Plan Chronic systolic heart failure Nonischemic CMP [facility] 02/2020: angiographically normal coronary arteries, with ejection fraction 5 to 10%. Noncompliant with the medications and dietary restriction Hypertension Recommendations: Advised compliance with medications and restriction of sodium and fluids. Continue optimal medical therapy including diuretics and a trial of IV milrinone. Subjective Date of service: 07/29/20 Interval history: Patient is resting in bed comfortably. Admits he is diuresing well. Objective Vital Signs Temp Pulse Pulse Resp BP Pulse Ox 07/29/20 08:33 22 07/29/20 08:02 98.7 F 96 H 114/77 92 07/29/20 03:24 98.6 F 98 H 18 119/72 90 07/28/20 23:15 98.9 F 108 H 18 125/93 93 07/28/20 22:30 119 H 19 125/82 95 07/28/20 22:28 93 H 18 98 07/28/20 22:00 106 H 13 126/85 95 07/28/20 21:30 104 H 18 126/85 96 07/28/20 21:00 101 H 126/85 07/28/20 20:30 108 H 19 139/73 96 07/28/20 20:00 107 H 25 H 139/73 96 07/28/20 19:30 98 H 20 116/74 94 07/28/20 19:00 98 H 21 116/74 92 07/28/20 18:30 104 H 23 136/90 94 07/28/20 18:06 99.2 F 07/28/20 18:00 104 H 26 H 136/90 07/28/20 17:46 110 H 20 127/91 98 07/28/20 17:30 109 H 22 127/91 97 07/28/20 17:16 100 H 20 127/91 97 07/28/20 17:00 103 H 18 127/91 98 07/28/20 16:46 98 H 22 121/70 98 07/28/20 16:30 104 H 26 H 121/70 95 07/28/20 16:16 107 H 24 121/70 97 07/28/20 16:00 99 H 18 136/82 95 07/28/20 15:46 96 H 16 121/70 96 07/28/20 15:30 103 H 21 121/70 94 07/28/20 15:16 102 H 16 121/70 95 07/28/20 15:00 100 H 17 121/70 95 07/28/20 14:46 107 H 20 123/81 96 07/28/20 14:30 107 H 19 123/81 93 07/28/20 14:16 101 H 14 123/81 93 07/28/20 14:00 98 H 15 123/81 93 07/28/20 13:46 101 H 15 125/86 93 07/28/20 13:30 100 H 19 125/86 93 07/28/20 13:16 93 H 17 125/86 87 07/28/20 13:00 102 H 22 125/86 93 07/28/20 12:46 104 H 16 128/76 95 07/28/20 12:30 97 H 19 128/76 97 07/28/20 12:16 117 H 24 128/76 97 07/28/20 12:00 93 H 17 128/76 07/28/20 11:46 96 H 16 136/86 94 - Physical Examination General: No Apparent Distress HEENT: Positive: PERRL Neck: Positive: trachea midline Cardiac: Positive: Reg Rate and Rhythm Lungs: Positive: Decreased Breath Sounds Neuro: Positive: Grossly Intact Extremities: Present: +2 Edema - Labs and Meds CBC 07/28/20 07/29/20 Range/Units 16:11 07:33 WBC 7.8 7.9 (4.5-11.0) K/mm3 RBC 4.33 4.31 (3.65-5.03) M/mm3 Hgb 14.6 14.4 (11.8-15.2) gm/dl Hct 43.5 42.7 (35.5-45.6) % Plt Count 278 316 (140-440) K/mm3 Lymph # (Auto) 1.2 (1.2-5.4) K/mm3 [place] # (Auto) 1.0 H (0.0-0.8) K/mm3 Eos # (Auto) 0.4 (0.0-0.4) K/mm3 Baso # (Auto) 0.1 (0.0-0.1) K/mm3 Comprehensive Metabolic Panel 07/28/20 07/29/20 Range/Units 16:11 07:33 Sodium 137 138 (137-145) mmol/L Potassium 4.3 3.6 (3.6-5.0) mmol/L Chloride 101.3 99.8 (98-107) mmol/L Carbon Dioxide 26 31 H (22-30) mmol/L BUN 19 17 (9-20) mg/dL Creatinine 0.9 1.0 (0.8-1.3) mg/dL Glucose 125 H 113 H (75-100) mg/dL Calcium 8.9 9.1 (8.4-10.2) mg/dL
--- NOTE | 2020-07-29 14:06 | Progress Note ---
Assessment and Plan Assessment and plan: Acute on chronic systolic heart failure. 02/2020: Cardiac cath showed dilated cardiomyopathy and near normal coronary arteries, EF 5-10% - 02/2020 Echo showed a severely dilated LV, EF < 15-20%, mild-mod TR, moderate MR and mild-mod pulmonary HTN -Cardiology consulted-patient started on IV milrinone and diuresis Elevated D-dimer -CTA of chest was negative for PE. Hypertension. -Continue home antihypertensive medication EtOH abuse. -Initiate CIWA protocol if needed. Tobacco abuse. -Patient will be counseled on smoking cessation. Full code History Interval history: Patient seen and examined at bedside this morning He feels much better today. On IV milrinone. Getting diuresis Cardiology on board Hospitalist Physical - Physical exam Narrative exam: VITAL SIGNS: Reviewed. GENERAL: Awake and alert on response to questions HEAD: No signs of head trauma. EYES: Pupils are equal. Extraocular motions intact. EARS: Hearing grossly intact. MOUTH: Oropharynx is normal. NECK: No adenopathy, no JVD. CHEST: Chest with diminished breath sounds bilaterally. No wheezes, rales, or rhonchi. CARDIAC: Regular rate and rhythm. S1 and S2, without murmurs, gallops, or rubs. ABDOMEN: Soft, non tender and non distended. No rebound or guarding, and no masses palpated. Bowel Sounds normal. MUSCULOSKELETAL: Leg edema NEUROLOGIC EXAM: Alert and oriented x3. No focal neurologic deficits PSYCHIATRIC: Stable mood SKIN: No obvious lesions - Constitutional Vitals: Temp Pulse Resp BP Pulse Ox 99.3 F 97 H 20 105/68 92 07/29/20 11:32 07/29/20 11:32 07/29/20 11:32 07/29/20 11:32 07/29/20 11:32 HEART Score - HEART Score Troponin: Troponin T < 0.010 ng/mL (0.00-0.029) 07/27/20 23:47 Results - Labs CBC & Chem 7: 07/29/20 07:33 07/29/20 07:33 Labs: Laboratory Last Values WBC 7.9 K/mm3 (4.5-11.0) 07/29/20 07:33 RBC 4.31 M/mm3 (3.65-5.03) 07/29/20 07:33 Hgb 14.4 gm/dl (11.8-15.2) 07/29/20 07:33 Hct 42.7 % (35.5-45.6) 07/29/20 07:33 MCV 99 fl (84-94) H 07/29/20 07:33 MCH 33 pg (28-32) H 07/29/20 07:33 MCHC 34 % (32-34) 07/29/20 07:33 RDW 14.9 % (13.2-15.2) 07/29/20 07:33 Plt Count 316 K/mm3 (140-440) 07/29/20 07:33 Lymph % (Auto) 15.2 % (13.4-35.0) 07/29/20 07:33 [place] % (Auto) 13.3 % (0.0-7.3) H 07/29/20 07:33 Eos % (Auto) 5.0 % (0.0-4.3) H 07/29/20 07:33 Baso % (Auto) 1.4 % (0.0-1.8) 07/29/20 07:33 Lymph # (Auto) 1.2 K/mm3 (1.2-5.4) 07/29/20 07:33 [place] # (Auto) 1.0 K/mm3 (0.0-0.8) H 07/29/20 07:33 Eos # (Auto) 0.4 K/mm3 (0.0-0.4) 07/29/20 07:33 Baso # (Auto) 0.1 K/mm3 (0.0-0.1) 07/29/20 07:33 Add Manual Diff Complete 07/28/20 16:11 Total Counted 100 07/28/20 16:11 Seg Neutrophils % 65.1 % (40.0-70.0) 07/29/20 07:33 Seg Neuts % (Manual) 66.0 % (40.0-70.0) 07/28/20 16:11 Band Neutrophils % 0 % 07/28/20 16:11 Lymphocytes % (Manual) 16.0 % (13.4-35.0) 07/28/20 16:11 Reactive Lymphs % (Man) 0 % 07/28/20 16:11 Monocytes % (Manual) 15.0 % (0.0-7.3) H 07/28/20 16:11 Eosinophils % (Manual) 3.0 % (0.0-4.3) 07/28/20 16:11 Basophils % (Manual) 0 % (0.0-1.8) 07/28/20 16:11 Metamyelocytes % 0 % 07/28/20 16:11 Myelocytes % 0 % 07/28/20 16:11 Promyelocytes % 0 % 07/28/20 16:11 Blast Cells % 0 % 07/28/20 16:11 Nucleated RBC % Not Reportable 07/28/20 16:11 Seg Neutrophils # 5.1 K/mm3 (1.8-7.7) 07/29/20 07:33 Seg Neutrophils # Man 5.1 K/mm3 (1.8-7.7) 07/28/20 16:11 Band Neutrophils # 0.0 K/mm3 07/28/20 16:11 Lymphocytes # (Manual) 1.2 K/mm3 (1.2-5.4) 07/28/20 16:11 Abs React Lymphs (Man) 0.0 K/mm3 07/28/20 16:11 Monocytes # (Manual) 1.2 K/mm3 (0.0-0.8) H 07/28/20 16:11 Eosinophils # (Manual) 0.2 K/mm3 (0.0-0.4) 07/28/20 16:11 Basophils # (Manual) 0.0 K/mm3 (0.0-0.1) 07/28/20 16:11 Metamyelocytes # 0.0 K/mm3 07/28/20 16:11 Myelocytes # 0.0 K/mm3 07/28/20 16:11 Promyelocytes # 0.0 K/mm3 07/28/20 16:11 Blast Cells # 0.0 K/mm3 07/28/20 16:11 WBC Morphology Not Reportable 07/28/20 16:11 Hypersegmented Neuts Not Reportable 07/28/20 16:11 Hyposegmented Neuts Not Reportable 07/28/20 16:11 Hypogranular Neuts Not Reportable 07/28/20 16:11 Smudge Cells Not Reportable 07/28/20 16:11 Toxic Granulation Not Reportable 07/28/20 16:11 Toxic Vacuolation Not Reportable 07/28/20 16:11 Dohle Bodies Not Reportable 07/28/20 16:11 Pelger-Huet Anomaly Not Reportable 07/28/20 16:11 Jacque Rods Not Reportable 07/28/20 16:11 Platelet Estimate Appears normal 07/28/20 16:11 Clumped Platelets Not Reportable 07/28/20 16:11 Plt Clumps, EDTA Not Reportable 07/28/20 16:11 Large Platelets Not Reportable 07/28/20 16:11 Giant Platelets Not Reportable 07/28/20 16:11 Platelet Satelliting Not Reportable 07/28/20 16:11 Plt Morphology Comment Not Reportable 07/28/20 16:11 RBC Morphology Not Reportable 07/28/20 16:11 Dimorphic RBCs Not Reportable 07/28/20 16:11 Polychromasia Not Reportable 07/28/20 16:11 Hypochromasia Not Reportable 07/28/20 16:11 Poikilocytosis Not Reportable 07/28/20 16:11 Anisocytosis Few 07/28/20 16:11 Microcytosis Not Reportable 07/28/20 16:11 Macrocytosis Not Reportable 07/28/20 16:11 Spherocytes Not Reportable 07/28/20 16:11 Pappenheimer Bodies Not Reportable 07/28/20 16:11 Sickle Cells Not Reportable 07/28/20 16:11 Target Cells Not Reportable 07/28/20 16:11 Tear Drop Cells Not Reportable 07/28/20 16:11 Ovalocytes Not Reportable 07/28/20 16:11 Helmet Cells Not Reportable 07/28/20 16:11 Busby-Coy Bodies Not Reportable 07/28/20 16:11 Moyers Rings Not Reportable 07/28/20 16:11 Dysart Cells Not Reportable 07/28/20 16:11 Bite Cells Not Reportable 07/28/20 16:11 Crenated Cell Not Reportable 07/28/20 16:11 Elliptocytes Not Reportable 07/28/20 16:11 Acanthocytes (Spur) Not Reportable 07/28/20 16:11 Rouleaux Not Reportable 07/28/20 16:11 Hemoglobin C Crystals Not Reportable 07/28/20 16:11 Schistocytes Not Reportable 07/28/20 16:11 Malaria parasites Not Reportable 07/28/20 16:11 Eriberto Bodies Not Reportable 07/28/20 16:11 Hem Pathologist Commnt No 07/28/20 16:11 D-Dimer 991.44 ng/mlDDU (0-234) H 07/27/20 17:58 Sodium 138 mmol/L (137-145) 07/29/20 07:33 Potassium 3.6 mmol/L (3.6-5.0) 07/29/20 07:33 Chloride 99.8 mmol/L (98-107) 07/29/20 07:33 Carbon Dioxide 31 mmol/L (22-30) H 07/29/20 07:33 Anion Gap 11 mmol/L 07/29/20 07:33 BUN 17 mg/dL (9-20) 07/29/20 07:33 Creatinine 1.0 mg/dL (0.8-1.3) 07/29/20 07:33 Estimated GFR > 60 ml/min 07/29/20 07:33 BUN/Creatinine Ratio 17 % 07/29/20 07:33 Glucose 113 mg/dL (75-100) H 07/29/20 07:33 Calcium 9.1 mg/dL (8.4-10.2) 07/29/20 07:33 Total Bilirubin 0.50 mg/dL (0.1-1.2) 07/27/20 17:58 Direct Bilirubin < 0.2 mg/dL (0-0.2) 07/27/20 17:58 Indirect Bilirubin 0.3 mg/dL 07/27/20 17:58 AST 27 units/L (5-40) 07/27/20 17:58 ALT 66 units/L (7-56) H 07/27/20 17:58 Alkaline Phosphatase 114 units/L (35-129) 07/27/20 17:58 Troponin T < 0.010 ng/mL (0.00-0.029) 07/27/20 23:47 NT-Pro-B Natriuret Pep 5869 pg/mL (0-900) H 07/27/20 17:58 Total Protein 6.4 g/dL (6.3-8.2) 07/27/20 17:58 Albumin 3.6 g/dL (3.9-5) L 07/27/20 17:58 Albumin/Globulin Ratio 1.3 % 07/27/20 17:58 Hewitt/IV: Voiding Method Toilet IV Catheter Type [Right INT / Saline Lock Antecubital] Active Medications - Current Medications Current Medications: Generic Name Dose Route Start Last Admin Trade Name Freq PRN Reason Stop Dose Admin Acetaminophen 650 mg 07/28/20 08:57 07/29/20 08:33 Tylenol PO 650 mg Q4H PRN Administration Fever >100.5/THOMPSON Acetaminophen 650 mg 07/28/20 08:57 Tylenol PO Q6H PRN Pain, Mild (1-3) Aspirin 81 mg 07/29/20 10:00 07/29/20 11:10 Baby Aspirin PO 81 mg QDAY LYNNETTE Administration Carvedilol 6.25 mg 07/28/20 22:00 07/29/20 11:09 Coreg PO 6.25 mg BID LYNNETTE Administration Furosemide 40 mg 07/28/20 18:00 07/29/20 06:35 Lasix IV 40 mg 0600,1800 LYNNETTE Administration Milrinone Lactate/Dextrose 20 mg in 100 mls @ 12.757 mls/hr 07/28/20 12:00 07/29/20 08:37 Milrinone-D5w 20 Mg/100 Ml IV 07/31/20 11:59 0.375 mcg/kg/min TITR LYNNETTE 12.757 mls/hr Administration 0.375 MCG/KG/MIN Losartan Potassium 50 mg 07/29/20 10:00 07/29/20 11:09 Cozaar PO 50 mg QDAY LYNNETTE Administration Ondansetron HCl 4 mg 07/28/20 08:57 Zofran IV Q8H PRN Nausea And Vomiting Sodium Chloride 10 ml 07/28/20 10:00 07/29/20 11:12 Sodium Chloride Flush Syringe 10 Ml IV Not Given BID LYNNETTE Sodium Chloride 10 ml 07/28/20 08:57 Sodium Chloride Flush Syringe 10 Ml IV PRN PRN LINE FLUSH Spironolactone 25 mg 07/29/20 10:00 07/29/20 11:09 Aldactone PO 25 mg QDAY LYNNETTE Administration
[2020-07-30] MEDS: MILRINONE-D5W 20 MG/100 ML 20 MG/100 ML BAG IV SCH ×3 (01:26→17:12)
[2020-07-30] MEDS: FUROSEMIDE 40 MG/4 ML INJ IV SCH ×2 (06:38→17:22)
[2020-07-30] MEDS: ACETAMINOPHEN 325 MG TAB PO PRN ×3 (09:35→21:26)
[2020-07-30] MEDS: LOSARTAN 50 MG TAB PO SCH (09:36)
[2020-07-30] MEDS: ASPIRIN 81 MG TAB CHEW PO SCH (09:36)
[2020-07-30] MEDS: carvediloL 6.25 MG TAB PO SCH ×2 (09:36→21:26)
[2020-07-30] MEDS: SPIRONOLACTONE 25 MG TAB PO SCH (09:36)
[2020-07-30 10:16] LABS: Basophils # (Auto) 0.2 K/mm3 (0.0-0.1); Eosinophils # (Auto) 0.3 K/mm3 (0.0-0.4); Eosinophils % (Auto) 4.6 % (0.0-4.3); Hematocrit 42.6 % (35.5-45.6); Hemoglobin 14.8 gm/dl (11.8-15.2); Lymphocytes # (Auto) 1.2 K/mm3 (1.2-5.4); Lymphocytes % (Auto) 15.5 % (13.4-35.0); Mean Corpuscular HGB Conc 35 % (32-34); Mean Corpuscular Volume 98 fl (84-94); Monocytes # (Auto) 1.1 K/mm3 (0.0-0.8); Monocytes % (Auto) 13.9 % (0.0-7.3); Platelet Count 297 K/mm3 (140-440); Red Blood Count 4.35 M/mm3 (3.65-5.03); Red Cell Distribution Width 14.9 % (13.2-15.2)
[2020-07-30 10:34] LABS: Alanine Aminotransferase 38 units/L (7-56); Albumin 3.5 g/dL (3.9-5); BUN/Creatinine Ratio 14; Blood Urea Nitrogen 14 mg/dL (9-20); Calcium 9.3 mg/dL (8.4-10.2); Hemolysis Index 8
--- NOTE | 2020-07-30 11:49 | Progress Note ---
Assessment and Plan Chronic systolic heart failure Nonischemic CMP [facility] 02/2020: angiographically normal coronary arteries, with ejection fraction 5 to 10%. Noncompliant with the medications and dietary restriction Hypertension Recommendations: Sodium and fluid restriction. Check a magnesium and TSH. Will increase beta blockers for suppression of NSVT. Continue optimal medical therapy including diuretics and a trial of IV milrinone. Subjective Date of service: 07/30/20 Interval history: Nurse reports asymptomatic non-sustained VT on telemetry overnight. IV milrinone continues. Objective Vital Signs Temp Pulse Resp BP Pulse Ox 07/30/20 09:36 98 H 116/71 07/30/20 09:35 16 07/30/20 07:57 99.0 F 101 H 125/83 95 07/30/20 03:50 99.2 F 92 H 19 116/70 94 07/29/20 23:19 98.3 F 103 H 16 123/79 94 07/29/20 21:46 103 H 07/29/20 19:13 99.0 F 92 H 18 116/69 92 07/29/20 18:00 99 H 07/29/20 15:30 98.6 F 101 H 20 109/77 94 - Physical Examination General: No Apparent Distress HEENT: Positive: PERRL Neck: Positive: trachea midline Cardiac: Positive: Reg Rate and Rhythm Lungs: Positive: Decreased Breath Sounds Neuro: Positive: Grossly Intact Extremities: Present: +2 Edema - Labs and Meds Cardiac Enzymes 07/30/20 Range/Units 09:35 AST 20 (5-40) units/L CBC 07/30/20 Range/Units 09:35 WBC 7.6 (4.5-11.0) K/mm3 RBC 4.35 (3.65-5.03) M/mm3 Hgb 14.8 (11.8-15.2) gm/dl Hct 42.6 (35.5-45.6) % Plt Count 297 (140-440) K/mm3 Lymph # (Auto) 1.2 (1.2-5.4) K/mm3 Thayer # (Auto) 1.1 H (0.0-0.8) K/mm3 Eos # (Auto) 0.3 (0.0-0.4) K/mm3 Baso # (Auto) 0.2 H (0.0-0.1) K/mm3 Comprehensive Metabolic Panel 07/30/20 Range/Units 09:35 Sodium 138 (137-145) mmol/L Potassium 3.8 (3.6-5.0) mmol/L Chloride 96.8 L (98-107) mmol/L Carbon Dioxide 32 H (22-30) mmol/L BUN 14 (9-20) mg/dL Creatinine 1.0 (0.8-1.3) mg/dL Glucose 152 H (75-100) mg/dL Calcium 9.3 (8.4-10.2) mg/dL AST 20 (5-40) units/L ALT 38 (7-56) units/L Alkaline Phosphatase 95 (35-129) units/L Total Protein 7.2 (6.3-8.2) g/dL Albumin 3.5 L (3.9-5) g/dL
--- NOTE | 2020-07-30 16:01 | Progress Note ---
Assessment and Plan Assessment and plan: Acute on chronic systolic heart failure. 02/2020: Cardiac cath showed dilated cardiomyopathy and near normal coronary arteries, EF 5-10% - 02/2020 Echo showed a severely dilated LV, EF < 15-20%, mild-mod TR, moderate MR and mild-mod pulmonary HTN -Cardiology consulted-patient started on IV milrinone and diuresis - BB increased for suppression of NSVT Elevated D-dimer -CTA of chest was negative for PE. Hypertension. -Continue home antihypertensive medication EtOH abuse. -Initiate CIWA protocol if needed. Tobacco abuse. -Patient will be counseled on smoking cessation. Full code History Interval history: Patient seen and examined at bedside this morning He feels much better today. On IV milrinone. Getting diuresis Cardiology on board Hospitalist Physical - Physical exam Narrative exam: VITAL SIGNS: Reviewed. GENERAL: Awake and alert on response to questions HEAD: No signs of head trauma. EYES: Pupils are equal. Extraocular motions intact. EARS: Hearing grossly intact. MOUTH: Oropharynx is normal. NECK: No adenopathy, no JVD. CHEST: Chest with diminished breath sounds bilaterally. Trace rales at the bases CARDIAC: Regular rate and rhythm. S1 and S2, without murmurs, gallops, or rubs. ABDOMEN: Soft, non tender and non distended. No rebound or guarding, and no masses palpated. Bowel Sounds normal. MUSCULOSKELETAL: Leg edema NEUROLOGIC EXAM: Alert and oriented x3. No focal neurologic deficits PSYCHIATRIC: Stable mood SKIN: No obvious lesions - Constitutional Vitals: Temp Pulse Resp BP Pulse Ox 98.4 F 97 H 20 105/66 94 07/30/20 11:35 07/30/20 11:35 07/30/20 11:35 07/30/20 11:35 07/30/20 11:35 HEART Score - HEART Score Troponin: Troponin T < 0.010 ng/mL (0.00-0.029) 07/27/20 23:47 Results - Labs CBC & Chem 7: 07/30/20 09:35 07/30/20 09:35 Labs: Laboratory Last Values WBC 7.6 K/mm3 (4.5-11.0) 07/30/20 09:35 RBC 4.35 M/mm3 (3.65-5.03) 07/30/20 09:35 Hgb 14.8 gm/dl (11.8-15.2) 07/30/20 09:35 Hct 42.6 % (35.5-45.6) 07/30/20 09:35 MCV 98 fl (84-94) H 07/30/20 09:35 MCH 34 pg (28-32) H 07/30/20 09:35 MCHC 35 % (32-34) H 07/30/20 09:35 RDW 14.9 % (13.2-15.2) 07/30/20 09:35 Plt Count 297 K/mm3 (140-440) 07/30/20 09:35 Lymph % (Auto) 15.5 % (13.4-35.0) 07/30/20 09:35 [place] % (Auto) 13.9 % (0.0-7.3) H 07/30/20 09:35 Eos % (Auto) 4.6 % (0.0-4.3) H 07/30/20 09:35 Baso % (Auto) Director Of Archives 07/30/20 09:35 Lymph # (Auto) 1.2 K/mm3 (1.2-5.4) 07/30/20 09:35 [place] # (Auto) 1.1 K/mm3 (0.0-0.8) H 07/30/20 09:35 Eos # (Auto) 0.3 K/mm3 (0.0-0.4) 07/30/20 09:35 Baso # (Auto) 0.2 K/mm3 (0.0-0.1) H 07/30/20 09:35 Add Manual Diff Complete 07/28/20 16:11 Total Counted 100 07/28/20 16:11 Seg Neutrophils % 63.4 % (40.0-70.0) 07/30/20 09:35 Seg Neuts % (Manual) 66.0 % (40.0-70.0) 07/28/20 16:11 Band Neutrophils % 0 % 07/28/20 16:11 Lymphocytes % (Manual) 16.0 % (13.4-35.0) 07/28/20 16:11 Reactive Lymphs % (Man) 0 % 07/28/20 16:11 Monocytes % (Manual) 15.0 % (0.0-7.3) H 07/28/20 16:11 Eosinophils % (Manual) 3.0 % (0.0-4.3) 07/28/20 16:11 Basophils % (Manual) 0 % (0.0-1.8) 07/28/20 16:11 Metamyelocytes % 0 % 07/28/20 16:11 Myelocytes % 0 % 07/28/20 16:11 Promyelocytes % 0 % 07/28/20 16:11 Blast Cells % 0 % 07/28/20 16:11 Nucleated RBC % Not Reportable 07/28/20 16:11 Seg Neutrophils # 4.8 K/mm3 (1.8-7.7) 07/30/20 09:35 Seg Neutrophils # Man 5.1 K/mm3 (1.8-7.7) 07/28/20 16:11 Band Neutrophils # 0.0 K/mm3 07/28/20 16:11 Lymphocytes # (Manual) 1.2 K/mm3 (1.2-5.4) 07/28/20 16:11 Abs React Lymphs (Man) 0.0 K/mm3 07/28/20 16:11 Monocytes # (Manual) 1.2 K/mm3 (0.0-0.8) H 07/28/20 16:11 Eosinophils # (Manual) 0.2 K/mm3 (0.0-0.4) 07/28/20 16:11 Basophils # (Manual) 0.0 K/mm3 (0.0-0.1) 07/28/20 16:11 Metamyelocytes # 0.0 K/mm3 07/28/20 16:11 Myelocytes # 0.0 K/mm3 07/28/20 16:11 Promyelocytes # 0.0 K/mm3 07/28/20 16:11 Blast Cells # 0.0 K/mm3 07/28/20 16:11 WBC Morphology Not Reportable 07/28/20 16:11 Hypersegmented Neuts Not Reportable 07/28/20 16:11 Hyposegmented Neuts Not Reportable 07/28/20 16:11 Hypogranular Neuts Not Reportable 07/28/20 16:11 Smudge Cells Not Reportable 07/28/20 16:11 Toxic Granulation Not Reportable 07/28/20 16:11 Toxic Vacuolation Not Reportable 07/28/20 16:11 Dohle Bodies Not Reportable 07/28/20 16:11 Pelger-Huet Anomaly Not Reportable 07/28/20 16:11 Jacque Rods Not Reportable 07/28/20 16:11 Platelet Estimate Appears normal 07/28/20 16:11 Clumped Platelets Not Reportable 07/28/20 16:11 Plt Clumps, EDTA Not Reportable 07/28/20 16:11 Large Platelets Not Reportable 07/28/20 16:11 Giant Platelets Not Reportable 07/28/20 16:11 Platelet Satelliting Not Reportable 07/28/20 16:11 Plt Morphology Comment Not Reportable 07/28/20 16:11 RBC Morphology Not Reportable 07/28/20 16:11 Dimorphic RBCs Not Reportable 07/28/20 16:11 Polychromasia Not Reportable 07/28/20 16:11 Hypochromasia Not Reportable 07/28/20 16:11 Poikilocytosis Not Reportable 07/28/20 16:11 Anisocytosis Few 07/28/20 16:11 Microcytosis Not Reportable 07/28/20 16:11 Macrocytosis Not Reportable 07/28/20 16:11 Spherocytes Not Reportable 07/28/20 16:11 Pappenheimer Bodies Not Reportable 07/28/20 16:11 Sickle Cells Not Reportable 07/28/20 16:11 Target Cells Not Reportable 07/28/20 16:11 Tear Drop Cells Not Reportable 07/28/20 16:11 Ovalocytes Not Reportable 07/28/20 16:11 Helmet Cells Not Reportable 07/28/20 16:11 [place] Bodies Not Reportable 07/28/20 16:11 [place] Rings Not Reportable 07/28/20 16:11 [place] Cells Not Reportable 07/28/20 16:11 Bite Cells Not Reportable 07/28/20 16:11 Crenated Cell Not Reportable 07/28/20 16:11 Elliptocytes Not Reportable 07/28/20 16:11 Acanthocytes (Spur) Not Reportable 07/28/20 16:11 Rouleaux Not Reportable 07/28/20 16:11 Hemoglobin C Crystals Not Reportable 07/28/20 16:11 Schistocytes Not Reportable 07/28/20 16:11 Malaria parasites Not Reportable 07/28/20 16:11 Eriberto Bodies Not Reportable 07/28/20 16:11 Hem Pathologist Commnt No 07/28/20 16:11 D-Dimer 991.44 ng/mlDDU (0-234) H 07/27/20 17:58 Sodium 138 mmol/L (137-145) 07/30/20 09:35 Potassium 3.8 mmol/L (3.6-5.0) 07/30/20 09:35 Chloride 96.8 mmol/L (98-107) L 07/30/20 09:35 Carbon Dioxide 32 mmol/L (22-30) H 07/30/20 09:35 Anion Gap 13 mmol/L 07/30/20 09:35 BUN 14 mg/dL (9-20) 07/30/20 09:35 Creatinine 1.0 mg/dL (0.8-1.3) 07/30/20 09:35 Estimated GFR > 60 ml/min 07/30/20 09:35 BUN/Creatinine Ratio 14 % 07/30/20 09:35 Glucose 152 mg/dL (75-100) H 07/30/20 09:35 Calcium 9.3 mg/dL (8.4-10.2) 07/30/20 09:35 Magnesium 1.90 mg/dL (1.7-2.3) 07/30/20 09:35 Total Bilirubin 0.80 mg/dL (0.1-1.2) 07/30/20 09:35 Direct Bilirubin < 0.2 mg/dL (0-0.2) 07/27/20 17:58 Indirect Bilirubin 0.3 mg/dL 07/27/20 17:58 AST 20 units/L (5-40) 07/30/20 09:35 ALT 38 units/L (7-56) 07/30/20 09:35 Alkaline Phosphatase 95 units/L (35-129) 07/30/20 09:35 Troponin T < 0.010 ng/mL (0.00-0.029) 07/27/20 23:47 NT-Pro-B Natriuret Pep 5869 pg/mL (0-900) H 07/27/20 17:58 Total Protein 7.2 g/dL (6.3-8.2) 07/30/20 09:35 Albumin 3.5 g/dL (3.9-5) L 07/30/20 09:35 Albumin/Globulin Ratio 0.9 % 07/30/20 09:35 Hewitt/IV: Voiding Method Toilet IV Catheter Type [Right Peripheral IV Antecubital] Active Medications - Current Medications Current Medications: Generic Name Dose Route Start Last Admin Trade Name Freq PRN Reason Stop Dose Admin Acetaminophen 650 mg 07/28/20 08:57 07/30/20 09:35 Tylenol PO 650 mg Q4H PRN Administration Fever >100.5/THOMPSON Acetaminophen 650 mg 07/28/20 08:57 Tylenol PO Q6H PRN Pain, Mild (1-3) Aspirin 81 mg 07/29/20 10:00 07/30/20 09:36 Baby Aspirin PO 81 mg QDAY LNYNETTE Administration Carvedilol 6.25 mg 07/28/20 22:00 07/30/20 09:36 Coreg PO 6.25 mg BID LYNNETTE Administration Furosemide 40 mg 07/28/20 18:00 07/30/20 06:38 Lasix IV 40 mg 0600,1800 LYNNETTE Administration Milrinone Lactate/Dextrose 20 mg in 100 mls @ 12.757 mls/hr 07/28/20 12:00 07/30/20 09:31 Milrinone-D5w 20 Mg/100 Ml IV 07/31/20 11:59 0.375 mcg/kg/min TITR LYNNETTE 12.757 mls/hr Administration 0.375 MCG/KG/MIN Losartan Potassium 50 mg 07/29/20 10:00 07/30/20 09:36 Cozaar PO 50 mg QDAY LYNNETTE Administration Ondansetron HCl 4 mg 07/28/20 08:57 Zofran IV Q8H PRN Nausea And Vomiting Sodium Chloride 10 ml 07/28/20 10:00 07/30/20 09:37 Sodium Chloride Flush Syringe 10 Ml IV 10 ml BID LYNNETTE Administration Sodium Chloride 10 ml 07/28/20 08:57 07/30/20 06:38 Sodium Chloride Flush Syringe 10 Ml IV 10 ml PRN PRN Administration LINE FLUSH Spironolactone 25 mg 07/29/20 10:00 07/30/20 09:36 Aldactone PO 25 mg QDAY LYNNETTE Administration
[2020-07-31] MEDS: MILRINONE-D5W 20 MG/100 ML 20 MG/100 ML BAG IV SCH ×2 (02:12→09:25)
[2020-07-31] MEDS: FUROSEMIDE 40 MG/4 ML INJ IV SCH ×2 (05:12→17:38)
[2020-07-31] MEDS: LOSARTAN 50 MG TAB PO SCH (09:26)
[2020-07-31] MEDS: carvediloL 6.25 MG TAB PO SCH ×2 (09:26→21:18)
[2020-07-31] MEDS: ASPIRIN 81 MG TAB CHEW PO SCH (09:26)
[2020-07-31] MEDS: SPIRONOLACTONE 25 MG TAB PO SCH (09:26)
--- NOTE | 2020-07-31 11:32 | Progress Note ---
<AMARA CHILEL - Last Filed: 07/31/20 11:31> Assessment and Plan Chronic systolic heart failure Nonischemic CMP [facility] 02/2020: angiographically normal coronary arteries, with ejection fraction 5 to 10%. Noncompliant with the medications and dietary restriction Hypertension Recommendations: Advised sodium and fluid restriction. Continue optimal medical therapy for chronic systolic heart failure. Discharge planning in 24 hours. Subjective Date of service: 07/31/20 Interval history: Patient reports his breathing has improved. No events on telemetry overnight. Objective Vital Signs Temp Pulse Pulse Pulse Resp BP Pulse Ox 07/31/20 10:00 93 H 07/31/20 09:28 14 07/31/20 09:26 98 H 116/71 07/31/20 08:15 100 H 100 H 17 99 07/31/20 07:21 97.8 F 99 H 18 117/88 92 07/31/20 04:49 98.7 F 96 H 16 135/79 94 07/31/20 02:00 83 07/30/20 23:27 99.8 F H 99 H 18 110/73 94 07/30/20 22:00 18 98 07/30/20 19:31 97.8 F 92 H 16 117/73 95 07/30/20 18:15 14 07/30/20 18:00 102 H 07/30/20 17:15 15 07/30/20 15:30 99.0 F 95 H 20 110/69 95 07/30/20 11:35 98.4 F 97 H 20 105/66 94 - Physical Examination General: No Apparent Distress HEENT: Positive: PERRL Neck: Positive: trachea midline Cardiac: Positive: Reg Rate and Rhythm Lungs: Positive: Decreased Breath Sounds Neuro: Positive: Grossly Intact Extremities: Present: +1 Edema <NILDA MCCALLUM Last Filed: 08/03/20 09:07> Subjective Interval history: I SAW THIS PT & AGREE WITH THE Dx & Tx PLAN
--- NOTE | 2020-07-31 14:57 | Progress Note ---
Assessment and Plan Assessment and plan: Acute on chronic systolic heart failure. 02/2020: Cardiac cath showed dilated cardiomyopathy and near normal coronary arteries, EF 5-10% - 02/2020 Echo showed a severely dilated LV, EF < 15-20%, mild-mod TR, moderate MR and mild-mod pulmonary HTN -Cardiology consulted-patient started on IV milrinone and diuresis - BB increased for suppression of NSVT Elevated D-dimer -CTA of chest was negative for PE. Hypertension. -Continue home antihypertensive medication EtOH abuse. -Initiate CIWA protocol if needed. Tobacco abuse. -Patient will be counseled on smoking cessation. Full code Disposition - Home tomorrow History Interval history: Patient seen and examined at bedside this morning No complaints On IV milrinone. Getting diuresis Cardiology on board Hospitalist Physical - Physical exam Narrative exam: VITAL SIGNS: Reviewed. GENERAL: Awake and alert on response to questions HEAD: No signs of head trauma. EYES: Pupils are equal. Extraocular motions intact. EARS: Hearing grossly intact. MOUTH: Oropharynx is normal. NECK: No adenopathy, no JVD. CHEST: Chest with diminished breath sounds bilaterally. Trace rales at the bases CARDIAC: Regular rate and rhythm. S1 and S2, without murmurs, gallops, or rubs. ABDOMEN: Soft, non tender and non distended. No rebound or guarding, and no masses palpated. Bowel Sounds normal. MUSCULOSKELETAL: Leg edema NEUROLOGIC EXAM: Alert and oriented x3. No focal neurologic deficits PSYCHIATRIC: Stable mood SKIN: No obvious lesions - Constitutional Vitals: Temp Pulse Resp BP Pulse Ox 97.8 F 93 H 16 115/77 99 07/31/20 07:21 07/31/20 10:00 07/31/20 11:44 07/31/20 11:44 07/31/20 08:15 HEART Score - HEART Score Troponin: Troponin T < 0.010 ng/mL (0.00-0.029) 07/27/20 23:47 Results - Labs CBC & Chem 7: 07/30/20 09:35 07/30/20 09:35 Labs: Laboratory Last Values WBC 7.6 K/mm3 (4.5-11.0) 07/30/20 09:35 RBC 4.35 M/mm3 (3.65-5.03) 07/30/20 09:35 Hgb 14.8 gm/dl (11.8-15.2) 07/30/20 09:35 Hct 42.6 % (35.5-45.6) 07/30/20 09:35 MCV 98 fl (84-94) H 07/30/20 09:35 MCH 34 pg (28-32) H 07/30/20 09:35 MCHC 35 % (32-34) H 07/30/20 09:35 RDW 14.9 % (13.2-15.2) 07/30/20 09:35 Plt Count 297 K/mm3 (140-440) 07/30/20 09:35 Lymph % (Auto) 15.5 % (13.4-35.0) 07/30/20 09:35 [place] % (Auto) 13.9 % (0.0-7.3) H 07/30/20 09:35 Eos % (Auto) 4.6 % (0.0-4.3) H 07/30/20 09:35 Baso % (Auto) Biological Scientist 07/30/20 09:35 Lymph # (Auto) 1.2 K/mm3 (1.2-5.4) 07/30/20 09:35 [place] # (Auto) 1.1 K/mm3 (0.0-0.8) H 07/30/20 09:35 Eos # (Auto) 0.3 K/mm3 (0.0-0.4) 07/30/20 09:35 Baso # (Auto) 0.2 K/mm3 (0.0-0.1) H 07/30/20 09:35 Add Manual Diff Complete 07/28/20 16:11 Total Counted 100 07/28/20 16:11 Seg Neutrophils % 63.4 % (40.0-70.0) 07/30/20 09:35 Seg Neuts % (Manual) 66.0 % (40.0-70.0) 07/28/20 16:11 Band Neutrophils % 0 % 07/28/20 16:11 Lymphocytes % (Manual) 16.0 % (13.4-35.0) 07/28/20 16:11 Reactive Lymphs % (Man) 0 % 07/28/20 16:11 Monocytes % (Manual) 15.0 % (0.0-7.3) H 07/28/20 16:11 Eosinophils % (Manual) 3.0 % (0.0-4.3) 07/28/20 16:11 Basophils % (Manual) 0 % (0.0-1.8) 07/28/20 16:11 Metamyelocytes % 0 % 07/28/20 16:11 Myelocytes % 0 % 07/28/20 16:11 Promyelocytes % 0 % 07/28/20 16:11 Blast Cells % 0 % 07/28/20 16:11 Nucleated RBC % Not Reportable 07/28/20 16:11 Seg Neutrophils # 4.8 K/mm3 (1.8-7.7) 07/30/20 09:35 Seg Neutrophils # Man 5.1 K/mm3 (1.8-7.7) 07/28/20 16:11 Band Neutrophils # 0.0 K/mm3 07/28/20 16:11 Lymphocytes # (Manual) 1.2 K/mm3 (1.2-5.4) 07/28/20 16:11 Abs React Lymphs (Man) 0.0 K/mm3 07/28/20 16:11 Monocytes # (Manual) 1.2 K/mm3 (0.0-0.8) H 07/28/20 16:11 Eosinophils # (Manual) 0.2 K/mm3 (0.0-0.4) 07/28/20 16:11 Basophils # (Manual) 0.0 K/mm3 (0.0-0.1) 07/28/20 16:11 Metamyelocytes # 0.0 K/mm3 07/28/20 16:11 Myelocytes # 0.0 K/mm3 07/28/20 16:11 Promyelocytes # 0.0 K/mm3 07/28/20 16:11 Blast Cells # 0.0 K/mm3 07/28/20 16:11 WBC Morphology Not Reportable 07/28/20 16:11 Hypersegmented Neuts Not Reportable 07/28/20 16:11 Hyposegmented Neuts Not Reportable 07/28/20 16:11 Hypogranular Neuts Not Reportable 07/28/20 16:11 Smudge Cells Not Reportable 07/28/20 16:11 Toxic Granulation Not Reportable 07/28/20 16:11 Toxic Vacuolation Not Reportable 07/28/20 16:11 Dohle Bodies Not Reportable 07/28/20 16:11 Pelger-Huet Anomaly Not Reportable 07/28/20 16:11 Jacque Rods Not Reportable 07/28/20 16:11 Platelet Estimate Appears normal 07/28/20 16:11 Clumped Platelets Not Reportable 07/28/20 16:11 Plt Clumps, EDTA Not Reportable 07/28/20 16:11 Large Platelets Not Reportable 07/28/20 16:11 Giant Platelets Not Reportable 07/28/20 16:11 Platelet Satelliting Not Reportable 07/28/20 16:11 Plt Morphology Comment Not Reportable 07/28/20 16:11 RBC Morphology Not Reportable 07/28/20 16:11 Dimorphic RBCs Not Reportable 07/28/20 16:11 Polychromasia Not Reportable 07/28/20 16:11 Hypochromasia Not Reportable 07/28/20 16:11 Poikilocytosis Not Reportable 07/28/20 16:11 Anisocytosis Few 07/28/20 16:11 Microcytosis Not Reportable 07/28/20 16:11 Macrocytosis Not Reportable 07/28/20 16:11 Spherocytes Not Reportable 07/28/20 16:11 Pappenheimer Bodies Not Reportable 07/28/20 16:11 Sickle Cells Not Reportable 07/28/20 16:11 Target Cells Not Reportable 07/28/20 16:11 Tear Drop Cells Not Reportable 07/28/20 16:11 Ovalocytes Not Reportable 07/28/20 16:11 Helmet Cells Not Reportable 07/28/20 16:11 [place] Bodies Not Reportable 07/28/20 16:11 [place] Rings Not Reportable 07/28/20 16:11 [place] Cells Not Reportable 07/28/20 16:11 Bite Cells Not Reportable 07/28/20 16:11 Crenated Cell Not Reportable 07/28/20 16:11 Elliptocytes Not Reportable 07/28/20 16:11 Acanthocytes (Spur) Not Reportable 07/28/20 16:11 Rouleaux Not Reportable 07/28/20 16:11 Hemoglobin C Crystals Not Reportable 07/28/20 16:11 Schistocytes Not Reportable 07/28/20 16:11 Malaria parasites Not Reportable 07/28/20 16:11 Eriberto Bodies Not Reportable 07/28/20 16:11 Hem Pathologist Commnt No 07/28/20 16:11 D-Dimer 991.44 ng/mlDDU (0-234) H 07/27/20 17:58 Sodium 138 mmol/L (137-145) 07/30/20 09:35 Potassium 3.8 mmol/L (3.6-5.0) 07/30/20 09:35 Chloride 96.8 mmol/L (98-107) L 07/30/20 09:35 Carbon Dioxide 32 mmol/L (22-30) H 07/30/20 09:35 Anion Gap 13 mmol/L 07/30/20 09:35 BUN 14 mg/dL (9-20) 07/30/20 09:35 Creatinine 1.0 mg/dL (0.8-1.3) 07/30/20 09:35 Estimated GFR > 60 ml/min 07/30/20 09:35 BUN/Creatinine Ratio 14 % 07/30/20 09:35 Glucose 152 mg/dL (75-100) H 07/30/20 09:35 Calcium 9.3 mg/dL (8.4-10.2) 07/30/20 09:35 Magnesium 1.90 mg/dL (1.7-2.3) 07/30/20 09:35 Total Bilirubin 0.80 mg/dL (0.1-1.2) 07/30/20 09:35 Direct Bilirubin < 0.2 mg/dL (0-0.2) 07/27/20 17:58 Indirect Bilirubin 0.3 mg/dL 07/27/20 17:58 AST 20 units/L (5-40) 07/30/20 09:35 ALT 38 units/L (7-56) 07/30/20 09:35 Alkaline Phosphatase 95 units/L (35-129) 07/30/20 09:35 Troponin T < 0.010 ng/mL (0.00-0.029) 07/27/20 23:47 NT-Pro-B Natriuret Pep 5869 pg/mL (0-900) H 07/27/20 17:58 Total Protein 7.2 g/dL (6.3-8.2) 07/30/20 09:35 Albumin 3.5 g/dL (3.9-5) L 07/30/20 09:35 Albumin/Globulin Ratio 0.9 % 07/30/20 09:35 TSH 5.850 mlU/mL (0.270-4.200) H 07/30/20 15:06 Hewitt/IV: Voiding Method Toilet IV Catheter Type [Right Peripheral IV Antecubital] Active Medications - Current Medications Current Medications: Generic Name Dose Route Start Last Admin Trade Name Freq PRN Reason Stop Dose Admin Acetaminophen 650 mg 07/28/20 08:57 07/30/20 21:26 Tylenol PO 650 mg Q4H PRN Administration Fever >100.5/THOMPSON Acetaminophen 650 mg 07/28/20 08:57 07/31/20 09:28 Tylenol PO 650 mg Q6H PRN Administration Pain, Mild (1-3) Aspirin 81 mg 07/29/20 10:00 07/31/20 09:26 Baby Aspirin PO 81 mg QDAY LYNNETTE Administration Carvedilol 6.25 mg 07/28/20 22:00 07/31/20 09:26 Coreg PO 6.25 mg BID LYNNETTE Administration Furosemide 40 mg 07/28/20 18:00 07/31/20 05:12 Lasix IV 40 mg 0600,1800 LYNNETTE Administration Losartan Potassium 50 mg 07/29/20 10:00 07/31/20 09:26 Cozaar PO 50 mg QDAY LYNNETTE Administration Ondansetron HCl 4 mg 07/28/20 08:57 Zofran IV Q8H PRN Nausea And Vomiting Sodium Chloride 10 ml 07/28/20 10:00 07/31/20 09:26 Sodium Chloride Flush Syringe 10 Ml IV 10 ml BID LYNNETTE Administration Sodium Chloride 10 ml 07/28/20 08:57 07/30/20 06:38 Sodium Chloride Flush Syringe 10 Ml IV 10 ml PRN PRN Administration LINE FLUSH Spironolactone 25 mg 07/29/20 10:00 07/31/20 09:26 Aldactone PO 25 mg QDAY LYNNETTE Administration
[2020-07-31 14:59] LABS: Alanine Aminotransferase 32 units/L (7-56); Albumin 3.4 g/dL (3.9-5); BUN/Creatinine Ratio 15; Blood Urea Nitrogen 17 mg/dL (9-20); Calcium 9.5 mg/dL (8.4-10.2); Hemolysis Index 13
[2020-07-31] MEDS: ACETAMINOPHEN 325 MG TAB PO PRN (21:17)
[2020-07-31] MEDS ORDERED: ZOLPIDEM 5 MG TAB PO PRN (21:25)
[2020-08-01] MEDS: FUROSEMIDE 40 MG/4 ML INJ IV SCH (06:08)
[2020-08-01] MEDS: ASPIRIN 81 MG TAB CHEW PO SCH (09:48)
[2020-08-01] MEDS: carvediloL 6.25 MG TAB PO SCH (09:48)
[2020-08-01] MEDS: LOSARTAN 50 MG TAB PO SCH (09:48)
[2020-08-01] MEDS: SPIRONOLACTONE 25 MG TAB PO SCH (09:48)
[2020-08-01] MEDS: ACETAMINOPHEN 325 MG TAB PO PRN (09:51)
--- NOTE | 2020-08-01 10:06 | Progress Note ---
<AMARA CHILEL - Last Filed: 08/01/20 10:04> Assessment and Plan Chronic systolic heart failure Nonischemic CMP [facility] 02/2020: angiographically normal coronary arteries, with ejection fraction 5 to 10%. Noncompliant with the medications and dietary restriction Hypertension Recommendations: Advised sodium and fluid restriction. Continue optimal medical therapy for chronic systolic heart failure. Stable, cardiac zavaleta, for discharge home today. Subjective Date of service: 08/01/20 Interval history: No events on telemetry overnight. Patient is diuresing well. Shortness of breath has resolved. Objective Vital Signs Temp Pulse Resp BP BP Pulse Ox 08/01/20 09:15 98.6 F 97 H 20 116/84 94 08/01/20 04:06 99.8 F H 94 H 18 119/90 96 08/01/20 02:00 95 H 07/31/20 23:55 98.1 F 99 H 18 125/85 97 07/31/20 20:54 18 07/31/20 20:38 98.7 F 93 H 18 127/80 94 07/31/20 18:00 87 07/31/20 17:38 97.9 F 86 16 113/76 98 07/31/20 15:26 98.3 F 93 H 18 102/65 94 07/31/20 11:44 16 115/77 07/31/20 10:28 16 - Physical Examination General: No Apparent Distress HEENT: Positive: PERRL Cardiac: Positive: Reg Rate and Rhythm Neuro: Positive: Grossly Intact Extremities: Absent: edema - Labs and Meds Cardiac Enzymes 07/31/20 Range/Units 14:13 AST 20 (5-40) units/L Comprehensive Metabolic Panel 07/31/20 Range/Units 14:13 Sodium 138 (137-145) mmol/L Potassium 4.5 (3.6-5.0) mmol/L Chloride 98.2 (98-107) mmol/L Carbon Dioxide 28 (22-30) mmol/L BUN 17 (9-20) mg/dL Creatinine 1.1 (0.8-1.3) mg/dL Glucose 109 H (75-100) mg/dL Calcium 9.5 (8.4-10.2) mg/dL AST 20 (5-40) units/L ALT 32 (7-56) units/L Alkaline Phosphatase 87 (35-129) units/L Total Protein 7.2 (6.3-8.2) g/dL Albumin 3.4 L (3.9-5) g/dL <NILDA MCCALLUM Last Filed: 08/03/20 09:01> Subjective Interval history: I SAW THIS PT & AGREE WITH THE Dx & Tx PLAN
--- NOTE | 2020-08-01 12:29 | Discharge Summary ---
Providers - Providers Date of Admission: 07/29/20 12:56 Date of discharge: 08/01/20 Attending physician: CHLOE RODRIGUEZ 07/28/20 Consult to Cardiac Rehabilitation [CONS] Routine Reason For Exam: Phase I 07/28/20 08:57 Consult to Physician [CONS] Routine Comment: Consulting Provider: HOLLIE DESOUZA Physician Instructions: Reason For Exam: CHF, CP Primary care physician: SENIOR IT PROJECT MANAGER Hospitalization Condition: Fair Hospital course: 54-year-old male with past medical history of dilated nonischemic cardiomyopathy, systolic heart failure (EF 5 to 10% )medical noncompliance presents to the emergency department with chief complaint of elevated blood pressure and chest pain. Patient states his blood pressure has been elevated for the last 4 days and has had chest tightness/discomfort for the past 2 days. Patient also reports dyspnea on exertion but denies nausea/vomiting or diaphoresis. No cough or cold-like symptoms. Patient does not have any alleviating or aggravating factors. Patient states he has a history of hypertension but has been off his medications due to the lack of insurance. Patient also states he has a history congestive heart failure and is not on his Lasix due to lack of having a primary care physician or insurance. The patient had a recent admission for acute systolic heart failure March 2020. Patient was admitted for acute on chronic systolic CHF and was started on IV diuretics. Cardiology was consulted. He had an elevated D-dimer on admission and a CT of the chest performed was negative for PE. Patient was started on IV milrinone for heart failure. His symptoms subsequently improved. His blood pressure is much better and he denies any chest pain. Patient has beta-jacqueline that has been adjusted due to episodes of nonsustained V. tach. Patient has been advised to follow-up with educational recruiter in the office. He is stable to be discharged home today and has been cleared by cardiology team for discharge. Disposition: TO HOME OR SELFCARE - Discharge Diagnoses (1) Acute exacerbation of CHF (congestive heart failure) Status: Acute (2) Pedal edema Status: Acute (3) Hypertension Status: Chronic Qualifiers: Hypertension type: essential hypertension Qualified Code(s): I10 - Essential (primary) hypertension (4) Tobacco abuse Status: Chronic Core Measure Documentation - Palliative Care Palliative Care/ Comfort Measures: Not Applicable - Core Measures Any of the following diagnoses?: none Exam - Physical Exam Narrative exam: VITAL SIGNS: Reviewed. GENERAL: Awake and alert on response to questions HEAD: No signs of head trauma. EYES: Pupils are equal. Extraocular motions intact. EARS: Hearing grossly intact. MOUTH: Oropharynx is normal. NECK: No adenopathy, no JVD. CHEST: Chest with diminished breath sounds bilaterally. Trace rales at the bases CARDIAC: Regular rate and rhythm. S1 and S2, without murmurs, gallops, or rubs. ABDOMEN: Soft, non tender and non distended. No rebound or guarding, and no masses palpated. Bowel Sounds normal. MUSCULOSKELETAL: Leg edema improved NEUROLOGIC EXAM: Alert and oriented x3. No focal neurologic deficits PSYCHIATRIC: Stable mood SKIN: No obvious lesions - Constitutional Vitals: Temp Pulse Resp BP Pulse Ox 98.6 F 80 18 116/84 96 08/01/20 09:15 08/01/20 10:00 08/01/20 10:00 08/01/20 09:15 08/01/20 10:00 Plan Activity: advance as tolerated Diet: low cholesterol, low salt Additional Instructions: Continue medications as ordered. Continue fluid and sodium restriction. Follow-up with educational recruiter in the office in 1 to 2 weeks Follow up with: PRIMARY MD GERALDINE [Primary Care Provider] - 3-5 Days HOLLIE DESOUZA MD [Staff Physician] - 7 Days Prescriptions: Spironolactone [Aldactone] 25 mg PO QDAY #30 tablet carvediloL [Coreg] 6.25 mg PO BID #60 tablet Losartan [Cozaar] 50 mg PO QDAY #30 tablet Aspirin EC [Halfprin EC] 81 mg PO QDAY #100 tablet Furosemide [Lasix TAB] 40 mg PO QDAY #30 tablet
[2020-08-01 13:08] VITALS: BP 112/80
== END 2020-08-01 17:29 | disposition home or self-care (01) | DRG 293 ==
LOC: ED 17:32 → 4A 07-28 08:09 → OBSVTOIN 07-29 12:56
PROVIDERS: ADMIT Hospitalist; ATTEND Internal Medicine
DX: I11.0 Hypertensive heart disease with heart failure (principal); I50.23 Acute on chronic systolic (congestive) heart failure; I42.8 Other cardiomyopathies; J45.909 Unspecified asthma, uncomplicated; F10.10 Alcohol abuse, uncomplicated; Z88.0 Allergy status to penicillin; Z91.14 Patient's other noncompliance with medication regimen; F17.200 Nicotine dependence, unspecified, uncomplicated; Y90.9 Presence of alcohol in blood, level not specified; I27.20 Pulmonary hypertension, unspecified; I08.1 Rheumatic disorders of both mitral and tricuspid valves; R79.1 Abnormal coagulation profile
CPT/HCPCS: 36415; 71046; 71275; 80048; 80053; 80076; 83735; 83880; 84439; 84443; 84484; 85007; 85025; 85379; 93005; 93970; 96374; G0378; J1940; J2260; Q9967